=== PATIENT | female | born 1940 | race Caucasian/White ===

== ENCOUNTER 2016-07-28 18:12 | Observation (INO) | payer MEDICARE ==
[2016-07-28] MEDS ORDERED: ASPIRIN 81 MG TABLET, CHEWABLE PO ONE (18:47)
[2016-07-28] MEDS ORDERED: MECLIZINE HCL 25 MG TABLET PO ONE (20:00)
[2016-07-28] MEDS ORDERED: MORPHINE SULFATE 10 MG/ML INJ IV ONE (20:00)
[2016-07-28] MEDS ORDERED: NORMAL SALINE 1000 ML 500 ML IV PRN (20:00)
--- NOTE | 2016-07-28 20:00 | ER Document Report ---
ED GI/ - General Chief Complaint: Chest Pain Stated Complaint: CHEST PAIN Time seen by provider: 19:59 Mode of Arrival: Ambulatory Information source: Patient - HPI Patient complains to provider of: Flank pain, Other - Dizziness Onset: This evening Timing/Duration: Gradual, Persistent Quality of pain: Achy Severity at maximum: Moderate Severity in ED: Moderate Pain Level: 3 Location: Left flank Vaginal bleeding (Compared to normal period): None Associated symptoms: Dizzy, Lightheaded, Urinary frequency Exacerbated by: Movement, Walking Relieved by: Denies Similar symptoms previously: No Recently seen / treated by doctor: No Notes: 07/29/16 04:34 Patient is a 76-year-old female who is visiting from [place], visiting to the emergency room complaining of dizziness/lightheadedness, with chills, and left flank pain, states she got up to go to the bathroom and felt like she was going to pass out or collapse, she's having a mild headache with blurred vision at times as well, she reports urinary frequency with hesitancy, no blood, she does report nausea and diarrhea yesterday without blood, no vomiting, patient reports that when she stands up and looks down she gets very lightheaded and feels as though she is going to fall - Related Data Allergies/Adverse Reactions: ibuprofen [From Motrin] Allergy (Verified 07/29/16 02:40) ketorolac [From Toradol] Allergy (Verified 07/29/16 02:40) Past Medical History - General Information source: Patient, Relative - Social History Smoking Status: Never Smoker Family History: Reviewed & Not Pertinent Review of Systems - Review of Systems Constitutional: No symptoms reported EENT: No symptoms reported Cardiovascular: Dizziness, Lightheaded Respiratory: No symptoms reported Gastrointestinal: See HPI Genitourinary: See HPI Female Genitourinary: No symptoms reported Musculoskeletal: No symptoms reported Skin: No symptoms reported Hematologic/Lymphatic: No symptoms reported Neurological/Psychological: No symptoms reported -: Yes All other systems reviewed and negative Physical Exam - Vital signs Vitals: Temp Pulse Resp BP Pulse Ox 98.6 F 73 16 153/74 H 96 07/28/16 18:37 07/28/16 18:37 07/28/16 18:37 07/28/16 18:37 07/28/16 18:37 Interpretation: Normal - General General appearance: Appears well, Alert - HEENT Head: Normocephalic, Atraumatic Eyes: Normal Pupils: PERRL - Respiratory Respiratory status: No respiratory distress Chest status: Nontender Breath sounds: Normal Chest palpation: Normal - Cardiovascular Rhythm: Regular Heart sounds: Normal auscultation Murmur: No - Abdominal Inspection: Normal Distension: No distension Bowel sounds: Normal Tenderness: Nontender Organomegaly: No organomegaly - Back Back: Normal, Nontender - Extremities General upper extremity: Normal inspection, Nontender, Normal color, Normal ROM , Normal temperature General lower extremity: Normal inspection, Nontender, Normal color, Normal ROM , Normal temperature. No: Moises's sign - Neurological Neuro grossly intact: Yes Cognition: Normal Orientation: AAOx4 [place] Coma Scale Eye Opening: Spontaneous [place] Coma Scale Verbal: Oriented [place] Coma Scale Motor: Obeys Commands [place] Coma Scale Total: 15 Speech: Normal Motor strength normal: LUE, RUE, LLE, RLE Sensory: Normal - Psychological Associated symptoms: Normal affect, Normal mood - Skin Skin Temperature: Warm Skin Moisture: Dry Skin Color: Normal Course - Re-evaluation Re-evalutation: 07/29/16 04:36 Attempts to ambulate patient were unsuccessful as she became very dizzy and lightheaded, feeling like she was going to collapse or fall, therefore she was discussed with the hospitalist who agrees to admit patient for further evaluation and treatment - Vital Signs Vital signs: Temp Pulse Resp BP Pulse Ox 98.9 F 73 18 147/74 H 94 07/29/16 02:01 07/28/16 18:37 07/29/16 02:01 07/29/16 02:00 07/29/16 02:01 - Laboratory Result Diagrams: 07/28/16 20:01 07/28/16 20:01 Laboratory results interpreted by me: 07/28/16 07/28/16 07/28/16 20:01 20:01 20:18 WBC 18.0 H RBC 5.36 H RDW 14.3 H Absolute Neutrophils 13.7 H Potassium 5.3 H BUN 23 H Est GFR ( Amer) 57 L Est GFR (Non-Af Amer) 47 L Glucose 113 H Calcium 10.5 H Total Protein 8.9 H Urine Protein 30 H Ur Leukocyte Esterase LARGE H - Diagnostic Test Radiology reviewed: Image reviewed, Reports reviewed - EKG Interpretation by Me EKG shows normal: Sinus rhythm Rate: Normal Rhythm: NSR [place]/QRS: RBBB - Transfer of Care Care transferred to following provider: Stan Discharge - Discharge Clinical Impression: Dizziness, Pyelonephritis Condition: Fair Disposition: ADMITTED OBSERVATION Admitting Provider: Hospitalist Unit Admitted: Medical Floor
[2016-07-28 20:19] LABS: ABSOLUTE BASOPHILS # (AUTO) 0.2 10^3/uL (0.0-0.2); ABSOLUTE EOSINOPHILS # (AUTO) 0.2 10^3/uL (0.0-0.6); ABSOLUTE NEUT (AUTO) 13.7 10^3/uL (1.7-8.2); BASOPHILS % (AUTO) 0.9 % (0-2); HEMATOCRIT 44.6 % (36.0-47.0); HEMOGLOBIN 14.7 g/dL (12.0-15.5); HGB HCT DIFFERENCE -0.5; LYMPHOCYTES % (AUTO) 16.9 % (13-45); MEAN CORPUSCULAR HEMOGLOBIN 27.4 pg (27.0-33.4); MEAN CORPUSCULAR VOLUME 83 fl (80-97); MONOCYTES % (AUTO) 5.3 % (3-13); RED BLOOD COUNT 5.36 10^6/uL (3.72-5.28); RED CELL DISTRIBUTION WIDTH 14.3 % (11.5-14.0); SEGMENTED NEUTROPHILS % (AUTO) 75.9 % (42-78)
[2016-07-28 20:39] LABS: APPEARANCE,URINE CLOUDY; BILIRUBIN,URINE NEGATIVE (NEGATIVE); GLUCOSE, URINE NEGATIVE (NEGATIVE); KETONES,URINE NEGATIVE (NEGATIVE); LEUKOCYTE ESTERASE,URINE LARGE (NEGATIVE); NITRITE,URINE NEGATIVE (NEGATIVE); PROTEIN,URINE 30 mg/dL (NEGATIVE); URINE SPECIFIC GRAVITY 1.013; UROBILINOGEN,URINE NEGATIVE mg/dL (<2.0)
[2016-07-28 20:59] LABS: CREATINE KINASE MB 1.19 ng/mL (<4.55); TROPONIN I < 0.012 ng/mL
[2016-07-28 21:00] LABS: ALANINE AMINOTRANSFERASE 22 U/L (9-52); ALBUMIN 4.8 g/dL (3.5-5.0); ALKALINE PHOSPHATASE 122 U/L (38-126); ANION GAP 16 (5-19); ASPARTATE AMINO TRANSFERASE 33 U/L (14-36); BILIRUBIN,TOTAL 0.7 mg/dL (0.2-1.3); BLOOD UREA NITROGEN 23 mg/dL (7-20); CALCIUM 10.5 mg/dL (8.4-10.2); CARBON DIOXIDE 22 mmol/L (22-30); CHLORIDE 106 mmol/L (98-107); CREATINE KINASE 73 U/L (30-135); CREATININE RESULT 1.12 mg/dL (0.52-1.25); GLUCOSE 113 mg/dL (75-110); POTASSIUM 5.3 mmol/L (3.6-5.0); SODIUM 143.9 mmol/L (137-145); TOTAL PROTEIN 8.9 g/dL (6.3-8.2)
[2016-07-28] MEDS ORDERED: CEPHALEXIN 500 MG CAPSULE PO ONE (21:08)
[2016-07-28] MEDS ORDERED: CEFTRIAXONE RTU 1 GM/D5W 50 ML IV ONE (23:07)
[2016-07-28] MEDS ORDERED: LACTULOSE SYRUP 20 GM/30 ML UDCUP PO ONE (23:38)
[2016-07-28] MEDS ORDERED: HYDRALAZINE HCL INJ/PF 20 MG/1 ML SDV IV PRN (23:38)
[2016-07-28] MEDS ORDERED: IPRATROPIUM/ALBUTEROL 0.5-2.5 MG/3 ML AMPUL NEB PRN (23:39)
[2016-07-28] MEDS ORDERED: ONDANSETRON HCL INJ/PF 4 MG/2 ML SDV IV PRN (23:39)
[2016-07-28] MEDS ORDERED: DEXTROSE 50%-WATER 25 GM/50 ML DISP.SYRIN IV PRN ×2 (23:44)
[2016-07-28] MEDS ORDERED: GLUCAGON,HUMAN RECOMB 1 MG INJ IM PRN (23:44)
[2016-07-28] MEDS ORDERED: DEXTROSE 40% GEL 15 GM TUBE PO PRN ×2 (23:44)
[2016-07-28] MEDS ORDERED: INSULIN LISPRO 100 UNIT/ML 3 ML VIAL SUBCUT PRN (23:44)
[2016-07-29] MEDS: ACETAMINOPHEN 325 MG TABLET PO PRN ×2 (00:53→08:43)
[2016-07-29] MEDS: NORMAL SALINE 1000 ML 1,000 ML IV SCH ×3 (01:46→15:06)
[2016-07-29 02:29] LABS: CREATINE KINASE MB 1.26 ng/mL (<4.55)
[2016-07-29 02:32] LABS: TROPONIN I < 0.012 ng/mL
--- NOTE | 2016-07-29 05:15 | PDOC H&P ---
History of Present Illness Admission Date/PCP: 07/28/16 23:39 Patient complains of: Left-sided flank and chest pain History of Present Illness: CELIA TRIPLETT is a 76 year old female with a past medical history of coronary artery disease status post four-vessel bypass graft 4 years ago, congestive heart failure, diabetes, diverticulosis, morbid obesity and grief after the loss of her son 1 month ago. Who was in her usual state of health until 24 hours prior to presentation complaining of diarrhea in transit from [place] to [place] when developed left-sided flank pain followed by chest pain and sensation of dizziness when looking down prompting to seek evaluation emergency room. Denying fever chills nausea vomiting shortness of breath or palpitations, in the emergency room she's found to have leukocytosis, hyperkalemia left-sided flank pain and left lower quadrant pain she started on empiric antibiotics for urinary tract infection and referred to hospice for admission. Requesting treatment of pain and anxiety. Past Medical History Cardiac Medical History: Reports: Congestive Heart Failure, Coronary Artery Disease Endocrine Medical History: Reports: Diabetes Mellitus Type 2 Psychiatric Medical History: Reports: General Anxiety Disorder Past Surgical History Past Surgical History: Reports: Coronary Artery Bypass Graft Social History Information Source: Patient Lives with: Family Smoking Status: Never Smoker Frequency of Alcohol Use: None - Advance Directive Resuscitation Status: Full Code Family History Family History: Hypertension Parental Family History Reviewed: Yes Children Family History Reviewed: Yes Sibling(s) Family History Reviewed.: Yes Medication/Allergy Allergies/Adverse Reactions: ibuprofen [From Motrin] Allergy (Verified 07/29/16 02:40) ketorolac [From Toradol] Allergy (Verified 07/29/16 02:40) Review of Systems Constitutional: PRESENT: as per HPI Eyes: ABSENT: visual disturbances Ears: ABSENT: hearing changes Cardiovascular: ABSENT: chest pain, dyspnea on exertion, edema, orthropnea, palpitations Respiratory: ABSENT: cough, hemoptysis Gastrointestinal: PRESENT: abdominal pain, bloating, constipation, diarrhea. ABSENT: coffee ground emesis, dysphagia, heartburn, hematemesis, melena, vomiting Genitourinary: ABSENT: dysuria, hematuria Musculoskeletal: ABSENT: joint swelling Integumentary: ABSENT: rash, wounds Neurological: ABSENT: abnormal gait, abnormal speech, confusion, dizziness, focal weakness, syncope Psychiatric: PRESENT: anxiety Endocrine: ABSENT: cold intolerance, heat intolerance, polydipsia, polyuria Hematologic/Lymphatic: ABSENT: easy bleeding, easy bruising Physical Exam Vital Signs: Temp Pulse Resp BP Pulse Ox 97.3 F 61 16 144/71 H 94 07/29/16 03:39 07/29/16 03:39 07/29/16 03:39 07/29/16 03:39 07/29/16 02:01 General appearance: PRESENT: no acute distress, cooperative Head exam: PRESENT: atraumatic, normocephalic Eye exam: PRESENT: conjunctiva pink, EOMI, PERRLA, other - No reproducible nystagmus. ABSENT: scleral icterus Ear exam: PRESENT: normal external ear exam Mouth exam: PRESENT: moist, tongue midline Neck exam: ABSENT: carotid bruit, JVD, lymphadenopathy, thyromegaly Respiratory exam: PRESENT: clear to auscultation bird. ABSENT: crackles, decreased breath sounds, prolonged expiratory phas, rales, rhonchi, wheezes Cardiovascular exam: PRESENT: RRR, +S1, +S2. ABSENT: bradycardia, clicks, diastolic murmur, gallop, irregular rhythm, rubs, systolic murmur, tachycardia Pulses: PRESENT: normal dorsalis pedis pul GI/Abdominal exam: PRESENT: diminished bowel sounds, distended, hypoactive bowel sounds, soft, tenderness - Left upper and lower quadrant. ABSENT: firm, guarding, hernia, organolmegaly, rebound, rigid Rectal exam: PRESENT: deferred Extremities exam: PRESENT: full ROM. ABSENT: calf tenderness, clubbing, pedal edema Neurological exam: PRESENT: alert, awake, oriented to person, oriented to place , oriented to time, oriented to situation, reflexes normal, CN II-XII grossly intact. ABSENT: altered, motor sensory deficit Psychiatric exam: PRESENT: anxious Skin exam: PRESENT: dry, intact, warm. ABSENT: cyanosis, rash Results Laboratory Results: 07/29/16 07/29/16 01:29 01:29 Creatine Kinase 79 CK-MB (CK-2) 1.26 Troponin I < 0.012 Impressions: Chest X-Ray 07/28/16 18:47 IMPRESSION: NO ACUTE CARDIOPULMONARY PROCESS. CHRONIC CHANGES ABOVE Head CT 07/28/16 21:59 IMPRESSION: CHRONIC CHANGES OF ATROPHY AND MICROVASCULAR ISCHEMIA. NO ACUTE PROCESS. Assessment & Plan - Diagnosis (1) Diverticulitis Is this a current diagnosis for this admission?: YesPlan: Patient gives a history of abdominal pain with diarrhea and history of diverticulosis and chronic pain on narcotics. she'll be treated with clear liquid diet fluoroquinolone and Flagyl and reevaluation of CBC (2) Dizziness Is this a current diagnosis for this admission?: YesPlan: Likely secondary to orthostatic hypotension and acute illness will IV fluid challenge and reevaluate orthostatic blood pressures (3) Pyelonephritis Is this a current diagnosis for this admission?: YesPlan: Urinalysis somewhat suggestive of urinary tract infection associated with flank pain, complicated by chronic pain. I will treat her with symptomatically management, IV fluid challenge empiric fluoroquinolone and Flagyl with follow- up urine culture and CBC (4) Orthostatic hypotension Is this a current diagnosis for this admission?: YesPlan: Likely secondary to prerenal azotemia and acute illness she receive treatment of infection and IV fluid challenge with reevaluation - Time Time Spent: 50 to 70 Minutes
[2016-07-29] MEDS ORDERED: HEPARIN SOD (PORCINE) 5,000 UNIT/ML 1 ML SYRINGE SUBCUT SCH (06:00)
[2016-07-29 08:05] LABS: ABSOLUTE BASOPHILS # (AUTO) 0.2 10^3/uL (0.0-0.2); ABSOLUTE EOSINOPHILS # (AUTO) 0.5 10^3/uL (0.0-0.6); ABSOLUTE LYMPHOCYTES (AUTO) 4.6 10^3/uL (0.5-4.7); ABSOLUTE MONOCYTES (AUTO) 1.3 10^3/uL (0.1-1.4); ABSOLUTE NEUT (AUTO) 9.7 10^3/uL (1.7-8.2); BASOPHILS % (AUTO) 1.3 % (0-2); EOSINOPHILS % (AUTO) 2.8 % (0-6); HEMATOCRIT 37.3 % (36.0-47.0); HGB HCT DIFFERENCE -0.1; LYMPHOCYTES % (AUTO) 28.2 % (13-45); MEAN CORPUSCULAR HEMOGLOBIN 27.7 pg (27.0-33.4); MEAN CORPUSCULAR HGB CONC 33.4 g/dL (32.0-36.0); MEAN CORPUSCULAR VOLUME 83 fl (80-97); SEGMENTED NEUTROPHILS % (AUTO) 59.7 % (42-78); WHITE BLOOD COUNT 16.3 10^3/uL (4.0-10.5)
[2016-07-29 08:11] LABS: HEMOGLOBIN 12.4 g/dL (12.0-15.5)
[2016-07-29 08:23] LABS: ANION GAP 13 (5-19); BLOOD UREA NITROGEN 21 mg/dL (7-20); CALCIUM 9.1 mg/dL (8.4-10.2); CARBON DIOXIDE 19 mmol/L (22-30); CHLORIDE 110 mmol/L (98-107); CREATINE KINASE 99 U/L (30-135); GLUCOSE 92 mg/dL (75-110)
[2016-07-29 08:30] LABS: CREATINE KINASE MB 1.55 ng/mL (<4.55)
[2016-07-29 08:34] LABS: POTASSIUM 4.3 mmol/L (3.6-5.0); TROPONIN I < 0.012 ng/mL
[2016-07-29] MEDS: DOCUSATE SODIUM 100 MG CAPSULE PO SCH ×2 (09:17→18:22)
[2016-07-29] MEDS ORDERED: CEFTRIAXONE SODIUM 1,500 MG in DEXTROSE 5%-WATER 100 ML IV SCH ×2 (10:00→22:00)
[2016-07-29] MEDS ORDERED: (PENDING PHARMACY ID) (Oxycodone Hcl/Acetaminophen [Percocet 10-325 Mg Tablet] 1 TAB) PO PRN (12:43)
[2016-07-29] MEDS ORDERED: MORPHINE SULFATE 10 MG/ML INJ IV PRN (12:44)
[2016-07-29] MEDS: METRONIDAZOLE 500 MG TABLET PO SCH ×3 (13:40→23:05)
[2016-07-29 14:17] LABS: CREATINE KINASE MB 2.34 ng/mL (<4.55)
[2016-07-29 14:21] LABS: TROPONIN I < 0.012 ng/mL
--- NOTE | 2016-07-29 16:12 | EKG REPORT ---
SEVERITY:- ABNORMAL ECG - SINUS RHYTHM RIGHT BUNDLE BRANCH BLOCK : Confirmed by: Mary Jo Soliz MD 29-Jul-2016 16:11:54
[2016-07-29] MEDS: APIXABAN 5 MG TABLET PO SCH (18:19)
[2016-07-29] MEDS: DIAZEPAM 5 MG TABLET PO PRN (18:22)
[2016-07-29] MEDS: OXYCODONE-ACETAMINOPHEN 5-325 MG TABLET PO PRN (20:02)
[2016-07-29] MEDS: OXYCODONE HCL IR 5 MG TABLET PO PRN (20:02)
--- NOTE | 2016-07-29 20:39 | PDOC PROGRESS REPORT ---
Subjective Progress Note for:: 07/29/16 Subjective:: Patient complains of back pain. She reports that she normally takes oxycodone for her sciatica. Patient also complains of headache. Patient reports her dizziness is improving but still slightly present. Patient is sitting up eating lunch when I visited her. Patient denies chest pain, shortness of breath, abdominal pain, nausea, vomiting , diarrhea, constipation, new onset weakness. Physical Exam Vital Signs: Temp Pulse Resp BP Pulse Ox 97.8 F 69 20 124/63 97 07/29/16 19:55 07/29/16 19:55 07/29/16 19:55 07/29/16 19:55 07/29/16 19:55 Intake & Output 07/28/16 07/29/16 07/30/16 06:59 06:59 06:59 Intake Total 527 360 Balance 527 360 Weight 90 kg Exam: General: Awake alert and oriented x3, no acute respiratory distress HEENT: AT/NC, PERRL, EOMI, oropharynx is moist, pink, no scleral icterus, no conjunctival injection Neck: No JVD, trachea midline Chest: Velcro-like rales bilateral lower lobes CV: Regular rate and rhythm, normal S1 and S2, no murmur, rub, or gallop Abdomen: Soft, nontender to palpation, nondistended, active bowel sounds; no rebound, rigidity, or guarding Extremities: No cyanosis, clubbing or edema Neuro: Cranial nerves II through XII are grossly intact without focal deficits; awake alert and oriented x3 Psych: Normal mood and affect Results Laboratory Results: 07/29/16 07:25 07/29/16 07:25 07/29/16 07/29/16 07:25 07:25 WBC 16.3 H RBC 4.50 Hgb 12.4 D Hct 37.3 MCV 83 MCH 27.7 MCHC 33.4 RDW 14.0 Plt Count 242 Seg Neutrophils % 59.7 Lymphocytes % 28.2 Monocytes % 8.0 Eosinophils % 2.8 Basophils % 1.3 Absolute Neutrophils 9.7 H Absolute Lymphocytes 4.6 Absolute Monocytes 1.3 Absolute Eosinophils 0.5 Absolute Basophils 0.2 Sodium 142.0 Potassium 4.3 D Chloride 110 H Carbon Dioxide 19 L Anion Gap 13 BUN 21 H Creatinine 1.00 Est GFR ( Amer) > 60 Est GFR (Non-Af Amer) 54 L Glucose 92 Calcium 9.1 07/29/16 07/29/16 07/29/16 01:29 01:29 07:25 Creatine Kinase 79 99 CK-MB (CK-2) 1.26 Troponin I < 0.012 07/29/16 07/29/16 07/29/16 07:25 13:27 13:27 Creatine Kinase 120 CK-MB (CK-2) 1.55 2.34 Troponin I < 0.012 < 0.012 Impressions: Chest X-Ray 07/28/16 18:47 IMPRESSION: NO ACUTE CARDIOPULMONARY PROCESS. CHRONIC CHANGES ABOVE Head CT 07/28/16 21:59 IMPRESSION: CHRONIC CHANGES OF ATROPHY AND MICROVASCULAR ISCHEMIA. NO ACUTE PROCESS. Abdomen/Pelvis CT 07/29/16 00:00 IMPRESSION: No evidence of urinary tract stones or other acute abnormality. Assessment & Plan - Diagnosis (1) Sepsis Is this a current diagnosis for this admission?: YesPlan: This is a gram-negative sepsis most likely Escherichia coli due to UTI (2) UTI (urinary tract infection) Qualifiers: Urinary tract infection type: acute pyelonephritis Qualified Code(s) : N10 - Acute pyelonephritis Is this a current diagnosis for this admission?: YesPlan: Patient has back pain and UTI, however no imaging has been done at this time to elucidate if there is obstructing stone or other anatomic abnormalities. Will obtain a plain CT of the abdomen and pelvis. Patient does have a history of chronic back pain and this could represent an exacerbation of her chronic pain. Continue patient currently on Rocephin (3) Pulmonary fibrosis Is this a current diagnosis for this admission?: Yes (4) Sciatica Qualifiers: Laterality: unspecified laterality Qualified Code(s): M54.30 - Sciatica, unspecified side Is this a current diagnosis for this admission?: Yes (5) Chronic back pain Qualifiers: Back pain location: low back pain Is this a current diagnosis for this admission?: YesPlan: Continue patient's home narcotics (6) Chronic prescription opiate use Is this a current diagnosis for this admission?: Yes (7) CKD (chronic kidney disease) stage 3, GFR 30-59 ml/min Is this a current diagnosis for this admission?: Yes (8) Orthostatic hypotension Is this a current diagnosis for this admission?: YesPlan: Continue IV fluids - Time Time Spent with patient: 25-34 minutes Medications reviewed and adjusted accordingly: Yes Anticipated discharge: Home Within: within 24 hours, within 48 hours - Inpatient Certification Based on my medical assessment, after consideration of the patient's comorbidities, presenting symptoms, or acuity I expect that the services needed warrant INPATIENT care.: Yes I certify that my determination is in accordance with my understanding of Medicare's requirements for reasonable and necessary INPATIENT services [42 CFR 412.3e].: Yes Medical Necessity: Failure to Improve With Outpatient Therapy, Need For IV Fluids, Need For Continuous Telemetry Monitoring, Need for Pain Control, Need for IV Antibiotics Post Hospital Care: D/C [facility] Documentation
[2016-07-30] MEDS: OXYCODONE HCL IR 5 MG TABLET PO PRN ×3 (03:17→16:20)
[2016-07-30] MEDS: OXYCODONE-ACETAMINOPHEN 5-325 MG TABLET PO PRN ×2 (03:17→16:19)
[2016-07-30] MEDS: METRONIDAZOLE 500 MG TABLET PO SCH ×2 (06:17→12:54)
[2016-07-30] MEDS: DIAZEPAM 5 MG TABLET PO PRN (08:22)
[2016-07-30 09:04] LABS: ABSOLUTE BASOPHILS # (AUTO) 0.1 10^3/uL (0.0-0.2); ABSOLUTE EOSINOPHILS # (AUTO) 0.5 10^3/uL (0.0-0.6); ABSOLUTE LYMPHOCYTES (AUTO) 3.6 10^3/uL (0.5-4.7); ABSOLUTE MONOCYTES (AUTO) 0.8 10^3/uL (0.1-1.4); ABSOLUTE NEUT (AUTO) 7.6 10^3/uL (1.7-8.2); BASOPHILS % (AUTO) 1.1 % (0-2); EOSINOPHILS % (AUTO) 4.1 % (0-6); HEMATOCRIT 36.5 % (36.0-47.0); HEMOGLOBIN 12.2 g/dL (12.0-15.5); HGB HCT DIFFERENCE 0.1; LYMPHOCYTES % (AUTO) 28.1 % (13-45); MEAN CORPUSCULAR HEMOGLOBIN 27.8 pg (27.0-33.4); MEAN CORPUSCULAR HGB CONC 33.5 g/dL (32.0-36.0); MEAN CORPUSCULAR VOLUME 83 fl (80-97); MONOCYTES % (AUTO) 6.5 % (3-13); RED BLOOD COUNT 4.39 10^6/uL (3.72-5.28); SEGMENTED NEUTROPHILS % (AUTO) 60.2 % (42-78); WHITE BLOOD COUNT 12.7 10^3/uL (4.0-10.5)
[2016-07-30] MEDS: APIXABAN 5 MG TABLET PO SCH (09:50)
[2016-07-30] MEDS: DOCUSATE SODIUM 100 MG CAPSULE PO SCH (09:54)
[2016-07-30] MEDS ORDERED: SERTRALINE HCL 50 MG TABLET PO SCH (10:00)
[2016-07-30] MEDS ORDERED: METOPROLOL SUCCINATE 50 MG TAB.SR.24H PO SCH (10:00)
[2016-07-30] MEDS ORDERED: LORATADINE 10 MG TABLET PO ONE (11:30)
[2016-07-30] MEDS ORDERED: FLUTICASONE NASAL SPRAY 50 MCG/SPRY 120 SPRAY/16 GM NASL ONE (12:00)
[2016-07-30] MEDS: ACETAMINOPHEN 325 MG TABLET PO PRN (15:23)
[2016-07-30 15:48] VITALS: BP 123/84
--- NOTE | 2016-07-30 16:54 | PDOC DISCHARGE SUMMARY ---
General - Admit/Disc Date/PCP Admission Date/Primary Care Provider: 07/28/16 23:39 Discharge Date: 07/30/16 - Discharge Diagnosis (1) Sepsis Is this a current diagnosis for this admission?: Yes (2) UTI (urinary tract infection) Is this a current diagnosis for this admission?: Yes (3) Pulmonary fibrosis Is this a current diagnosis for this admission?: Yes (4) Sciatica Is this a current diagnosis for this admission?: Yes (5) Chronic back pain Is this a current diagnosis for this admission?: Yes (6) Chronic prescription opiate use Is this a current diagnosis for this admission?: Yes (7) CKD (chronic kidney disease) stage 3, GFR 30-59 ml/min Is this a current diagnosis for this admission?: Yes (8) Orthostatic hypotension Is this a current diagnosis for this admission?: Yes (9) Obesity (BMI 30.0-34.9) Is this a current diagnosis for this admission?: Yes - Additional Information Resuscitation Status: Full Code Discharge Diet: Cardiac, Diabetic Discharge Activity: Activity As Tolerated Home Medications: Apixaban [Eliquis 5 mg Tablet] 5 mg PO BID 07/29/16 Aspirin [Aspirin EC] 81 mg PO DAILY 07/29/16 Diazepam [Valium 5 mg Tablet] 5 mg PO TIDP PRN 07/29/16 Furosemide [Lasix] 20 mg PO DAILY 07/29/16 Metoprolol Succinate [Toprol Xl 50 mg Tab.sr] 50 mg PO DAILY 07/29/16 Oxycodone HCl/Acetaminophen [Percocet 10-325 mg Tablet] 1 tab PO QIDP PRN Sertraline HCl [Zoloft] 100 mg PO DAILY 07/29/16 Ciprofloxacin HCl [Cipro 500 mg Tablet] 500 mg PO BID #20 tablet 07/30/16 Docusate Sodium [Colace 100 mg Capsule] 100 mg PO BID capsule 07/30/16 Fluticasone Propionate [Flonase Nasal [place] 50 Mcg/[place] 16 gm] 1 spray NASL Q12 #1 spray.pump 07/30/16 Loratadine [Claritin 10 mg Tablet] 10 mg PO DAILY #30 tablet 07/30/16 Methylprednisolone [Medrol Dosepack (4 mg/Tab) 21 Tab/Dosepak] 4 mg PO ASDIR PRN #21 tab.ds.pk 07/30/16 History of Present Illness History of Present Illness: CELIA TRIPLETT is a 76 year old female with a past medical history of coronary artery disease status post four-vessel bypass graft 4 years ago, congestive heart failure, diabetes, diverticulosis, morbid obesity and grief after the loss of her son 1 month ago. Who was in her usual state of health until 24 hours prior to presentation complaining of diarrhea in transit from [place] to [place] when developed left-sided flank pain followed by chest pain and sensation of dizziness when looking down prompting to seek evaluation emergency room. Denying fever chills nausea vomiting shortness of breath or palpitations, in the emergency room she's found to have leukocytosis, hyperkalemia left-sided flank pain and left lower quadrant pain she started on empiric antibiotics for urinary tract infection and referred to hospitalist for admission. Requesting treatment of pain and anxiety. Hospital Course Hospital Course: Patient was placed on observation and started empirically on Rocephin for her urinary tract infection. Patient underwent CT scan of the abdomen to evaluate for possible stone or pyelonephritis. Patient was found to have no stone or pyelonephritis and no diverticulitis. Patient underwent a CT of her head for headaches and was found to be unremarkable. Patient expressed symptoms consistent with allergic rhinitis including facial discomfort was started on Flonase and Claritin. Patient did request refills of her narcotics and benzodiazepines which were declined prior to discharge. Patient was found to have Escherichia coli UTI which was sensitive to Cipro patient was placed on Cipro and discharged home. Patient has been instructed to follow-up with for these chronic conditions with her primary care physician. Patient does not doctor here in [place] and does see a physician out of state. Patient is discharged in stable condition. Physical Exam Vital Signs: Temp Pulse Resp BP Pulse Ox 97.2 F 70 16 123/84 99 07/30/16 15:48 07/30/16 15:48 07/30/16 15:48 07/30/16 15:48 07/30/16 15:48 Intake & Output 07/29/16 07/30/16 07/31/16 06:59 06:59 06:59 Intake Total 527 917 355 Output Total 950 200 Balance 527 -33 155 Weight 90 kg 93.6 kg Exam: General: Awake alert and oriented x3, no acute respiratory distress HEENT: AT/NC, PERRL, EOMI, oropharynx is moist, pink, no scleral icterus, no conjunctival injection Neck: No JVD, trachea midline Chest: Velcro-like crackles bilateral lower lobes CV: Regular rate and rhythm, normal S1 and S2, no murmur, rub, or gallop Abdomen: Soft, nontender to palpation, nondistended, active bowel sounds; no rebound, rigidity, or guarding Extremities: No cyanosis, clubbing or edema Neuro: Cranial nerves II through XII are grossly intact without focal deficits; awake alert and oriented x3 Psych: Normal mood and affect Results Laboratory Results: 07/30/16 08:55 07/29/16 07:25 07/30/16 08:55 WBC 12.7 H RBC 4.39 Hgb 12.2 Hct 36.5 MCV 83 MCH 27.8 MCHC 33.5 RDW 14.0 Plt Count 218 Seg Neutrophils % 60.2 Lymphocytes % 28.1 Monocytes % 6.5 Eosinophils % 4.1 Basophils % 1.1 Absolute Neutrophils 7.6 Absolute Lymphocytes 3.6 Absolute Monocytes 0.8 Absolute Eosinophils 0.5 Absolute Basophils 0.1 07/29/16 07/29/16 07/29/16 01:29 01:29 07:25 Creatine Kinase 79 99 CK-MB (CK-2) 1.26 Troponin I < 0.012 07/29/16 07/29/16 07/29/16 07:25 13:27 13:27 Creatine Kinase 120 CK-MB (CK-2) 1.55 2.34 Troponin I < 0.012 < 0.012 Impressions: Chest X-Ray 07/28/16 18:47 IMPRESSION: NO ACUTE CARDIOPULMONARY PROCESS. CHRONIC CHANGES ABOVE Head CT 07/28/16 21:59 IMPRESSION: CHRONIC CHANGES OF ATROPHY AND MICROVASCULAR ISCHEMIA. NO ACUTE PROCESS. Abdomen/Pelvis CT 07/29/16 00:00 IMPRESSION: No evidence of urinary tract stones or other acute abnormality. Qualifiers PATEINT BEING DISCHARGED WITH ANY OF THE FOLLOWING DIAGNOSIS?: No Plan Time Spent: Greater than 30 Minutes
[2016-07-30] MEDS ORDERED: FLUTICASONE NASAL SPRAY 50 MCG/SPRY 120 SPRAY/16 GM NASL SCH (22:00)
[2016-07-31] MEDS ORDERED: LORATADINE 10 MG TABLET PO SCH (10:00)
== END 2016-07-30 16:41 | disposition home or self-care (01) ==
LOC: ER 18:12 → EH 23:39 → 4W 07-29 03:40
PROVIDERS: ADMIT Internal Medicine; ATTEND Internal Medicine
DX: A41.9 Sepsis, unspecified organism (principal); N12 Tubulo-interstitial nephritis, not specified as acute or chronic; J84.10 Pulmonary fibrosis, unspecified; M54.30 Sciatica, unspecified side; G89.29 Other chronic pain; M54.9 Dorsalgia, unspecified; N18.3 Chronic kidney disease, stage 3 (moderate); I95.0 Idiopathic hypotension; I25.10 Atherosclerotic heart disease of native coronary artery without angina pectoris; I50.9 Heart failure, unspecified; E11.22 Type 2 diabetes mellitus with diabetic chronic kidney disease; K57.92 Diverticulitis of intestine, part unspecified, without perforation or abscess without bleeding; R42 Dizziness and giddiness; E66.9 Obesity, unspecified; Z95.1 Presence of aortocoronary bypass graft; Z79.899 Other long term (current) drug therapy
CPT/HCPCS: 93005; 36415 ×3; 87086; 82553 ×2; 82962 ×2; 82550 ×2; 85025 ×3; 87088; 80048; 80053; 81001; 84484 ×2; 87186; 71010; 70450; 74176; 93010; 97163; G0378 ×3; A9270 ×20; J1644; J2270 ×2; J0696 ×2; J7030 ×2; G8978; G8979; 96361; 96365; 96366; 96375; 99285

== ENCOUNTER 2016-08-06 14:25 | Inpatient (IN) | payer MEDICARE ==
--- NOTE | 2016-08-06 14:44 | ER Document Report ---
ED Medical Screen (RME) - General Stated Complaint: DIZZINESS Mode of Arrival: Wheelchair Information source: Patient, Relative - Daughter Notes: Patient presents to the emergency department with dizziness decreased urine output low back pain. Daughter reports patient had the symptoms since and discharged last week from hospital for the same. Daughter reports some was like she's passing out when she becomes very dizzy. Denies chest pain. Reports she is dizzy when she leans down, looks up or just sitting. She is taking cipro now. Reports diarrhea stool is foul smelling, looks funny. I have greeted and performed a rapid initial assessment of this patient. A comprehensive ED assessment and evaluation of the patient, analysis of test results and completion of the medical decision making process will be conducted by additional ED providers. TRAVEL OUTSIDE OF THE [place] IN LAST 30 DAYS: No - Related Data Allergies/Adverse Reactions: ibuprofen [From Motrin] Allergy (Verified 07/29/16 02:40) ketorolac [From Toradol] Allergy (Verified 07/29/16 02:40) Past Medical History - Past Medical History Cardiac Medical History: Reports: Hx Congestive Heart Failure, Hx Coronary Artery Disease Endocrine Medical History: Reports: Hx Diabetes Mellitus Type 2 Past Surgical History: Reports: Hx Coronary Artery Bypass Graft
[2016-08-06] MEDS ORDERED: ACETAMINOPHEN 325 MG TABLET PO ONE (15:02)
[2016-08-06 15:25] LABS: ABSOLUTE BASOPHILS # (AUTO) 0.1 10^3/uL (0.0-0.2); ABSOLUTE EOSINOPHILS # (AUTO) 0.2 10^3/uL (0.0-0.6); ABSOLUTE LYMPHOCYTES (AUTO) 2.4 10^3/uL (0.5-4.7); ABSOLUTE MONOCYTES (AUTO) 0.9 10^3/uL (0.1-1.4); ABSOLUTE NEUT (AUTO) 12.3 10^3/uL (1.7-8.2); BASOPHILS % (AUTO) 0.6 % (0-2); EOSINOPHILS % (AUTO) 1.5 % (0-6); HEMATOCRIT 40.7 % (36.0-47.0); HEMOGLOBIN 13.7 g/dL (12.0-15.5); HGB HCT DIFFERENCE 0.4; MEAN CORPUSCULAR HGB CONC 33.7 g/dL (32.0-36.0); MEAN CORPUSCULAR VOLUME 83 fl (80-97); MONOCYTES % (AUTO) 5.8 % (3-13); RED BLOOD COUNT 4.91 10^6/uL (3.72-5.28); RED CELL DISTRIBUTION WIDTH 14.5 % (11.5-14.0); SEGMENTED NEUTROPHILS % (AUTO) 77.1 % (42-78)
[2016-08-06 15:43] LABS: ALANINE AMINOTRANSFERASE 24 U/L (9-52); ALBUMIN 4.5 g/dL (3.5-5.0); ALKALINE PHOSPHATASE 101 U/L (38-126); ANION GAP 18 (5-19); ASPARTATE AMINO TRANSFERASE 21 U/L (14-36); BILIRUBIN,DIRECT 0.4 mg/dL (0.0-0.4); BILIRUBIN,TOTAL 0.6 mg/dL (0.2-1.3); BLOOD UREA NITROGEN 14 mg/dL (7-20); CALCIUM 9.9 mg/dL (8.4-10.2); CARBON DIOXIDE 20 mmol/L (22-30); CHLORIDE 105 mmol/L (98-107); GLUCOSE 114 mg/dL (75-110); POTASSIUM 4.1 mmol/L (3.6-5.0); SODIUM 142.7 mmol/L (137-145); TOTAL PROTEIN 7.6 g/dL (6.3-8.2)
[2016-08-06 16:10] LABS: APPEARANCE,URINE SLIGHTLY-CLOUDY; BILIRUBIN,URINE NEGATIVE (NEGATIVE); GLUCOSE, URINE NEGATIVE (NEGATIVE); KETONES,URINE NEGATIVE (NEGATIVE); LEUKOCYTE ESTERASE,URINE LARGE (NEGATIVE); NITRITE,URINE NEGATIVE (NEGATIVE); PROTEIN,URINE 30 mg/dL (NEGATIVE); URINE SPECIFIC GRAVITY 1.009; UROBILINOGEN,URINE NEGATIVE mg/dL (<2.0)
[2016-08-06] MEDS ORDERED: MECLIZINE HCL 25 MG TABLET PO ONE (17:59)
[2016-08-06] MEDS ORDERED: METRONIDAZOLE 500 MG TABLET PO ONE (17:59)
--- NOTE | 2016-08-06 19:09 | ER Document Report ---
ED General - General Chief Complaint: Diarrhea Stated Complaint: DIZZINESS Mode of Arrival: Wheelchair Information source: Patient, Relative, [facility] Records Notes: This 76-year-old female patient comes emergency room complaining of dizziness for the past 2 weeks, low back pain and decreased urine output. She reports the diarrhea is foul smelling. She does have chronic low back pain. She was seen in the emergency room on 07/28/2016 complaining of flank pain and dizziness with urine frequency and lightheaded. At that time she reports that when she stands up and looks down she gets very lightheaded and feels as though she is going to fall. Those symptoms have persisted. She reports that when she goes to lay down, she would get dizzy and if she bends over to tie her shoes she will get dizzy. The dizziness does not last but for a few seconds. She was admitted on 07/28/2016 and discharged on 07/30/2016. She was found to have an Escherichia coli urinary tract infection. CT scan of the head done at that time showed right maxillary mucous retention cysts or polyps. She ultimately was discharged on Cipro for her Escherichia coli urinary tract infection. I did observe the patient through the window as she was getting up from a toilet , wiping, and then sitting back on the stretcher and she did not seem to have any difficulty with ambulation at that time. Later when I was in the room and had finished and exam I had her stand up to check her balance, and she put both arms out to the sides and went into a wide based staggering to demonstrate how bad things are. She does have a past history of C. difficile infection according to her daughter. During the 07/28/2016 admission, her stool was not tested for C. difficile. TRAVEL OUTSIDE OF THE [place] IN LAST 30 DAYS: No - Related Data Allergies/Adverse Reactions: ibuprofen [From Motrin] Allergy (Verified 08/06/16 14:43) ketorolac [From Toradol] Allergy (Verified 08/06/16 14:43) Past Medical History - General Information source: Patient, Relative - Daughter, [facility] Records - Social History Smoking Status: Never Smoker Cigarette use (# per day): No Chew tobacco use (# tins/day): No Smoking Education Provided: No Frequency of alcohol use: None Drug Abuse: None Occupation: retired Lives with: Other - Patient is visiting here from [facility], and they expect to be in this area for another 2 weeks. Family History: Hypertension Patient has suicidal ideation: No Patient has homicidal ideation: No - Past Medical History Cardiac Medical History: Reports: Hx Congestive Heart Failure, Hx Coronary Artery Disease Endocrine Medical History: Reports: Hx Diabetes Mellitus Type 2 Renal/ Medical History: Denies: Hx Peritoneal Dialysis Past Surgical History: Reports: Hx Coronary Artery Bypass Graft - Immunizations Hx Pneumococcal Vaccination: 02/12/16 Review of Systems - Review of Systems Constitutional: No symptoms reported EENT: Sinus pressure, Sinus discharge - Clear sinus discharge Cardiovascular: No symptoms reported Respiratory: No symptoms reported Gastrointestinal: See HPI, Diarrhea Genitourinary: No symptoms reported Female Genitourinary: Post menopausal Musculoskeletal: Back pain - Chronic low back pain Skin: No symptoms reported Hematologic/Lymphatic: No symptoms reported Neurological/Psychological: No symptoms reported Physical Exam - Vital signs Vitals: Temp Pulse Resp BP Pulse Ox 98.1 F 85 20 124/76 94 08/06/16 14:39 08/06/16 14:39 08/06/16 14:39 08/06/16 14:39 08/06/16 14:39 Interpretation: Normal - General General appearance: Appears well, Alert In distress: None - HEENT Head: Normocephalic, Atraumatic Eyes: Normal Pupils: PERRL Neck: Normal - Respiratory Respiratory status: No respiratory distress - Cardiovascular Rhythm: Regular - Abdominal Inspection: Obese Bowel sounds: Normal Tenderness: Nontender - Back Back: Tender - Extremities General upper extremity: Normal inspection General lower extremity: Normal inspection - Neurological Neuro grossly intact: Yes Notes: When I have the patient looked up-and-down rapidly and side to side, there is no nystagmus and the dizziness she reports occurs only when she looks up rapidly and it goes away almost instantly. - Psychological Associated symptoms: Normal affect, Normal mood - Skin Skin Temperature: Warm Skin Moisture: Dry Skin Color: Normal Course - Re-evaluation Re-evalutation: 08/06/16 19:19 The patient's stool was positive for C. difficile toxins. The stool was heme positive, there were no WBCs seen. - Vital Signs Vital signs: Temp Pulse Resp BP Pulse Ox 97.9 F 67 18 111/62 97 08/06/16 18:40 08/06/16 18:40 08/06/16 18:40 08/06/16 18:40 08/06/16 18:40 - Laboratory Result Diagrams: 08/06/16 14:58 08/06/16 14:58 Laboratory results interpreted by me: 08/06/16 08/06/16 08/06/16 14:58 14:58 15:26 WBC 16.0 H RDW 14.5 H Absolute Neutrophils 12.3 H Carbon Dioxide 20 L Est GFR ( Amer) 58 L Est GFR (Non-Af Amer) 48 L Glucose 114 H Urine Protein 30 H Urine Blood SMALL H Ur Leukocyte Esterase LARGE H - EKG Interpretation by Me EKG shows normal: Sinus rhythm, [place], Intervals, ST-T Waves. abnormal: QRS Complexes Rate: Normal - 79 Rhythm: NSR [place]/QRS: RBBB When compared to previous EKG there are: No significant change - Consults Dr. Cuenca Time consulted: 19:40 Consulted provider: will come to ER Discharge - Discharge Clinical Impression: Clostridium difficile diarrhea Urinary tract infection Qualifiers: Urinary tract infection type: site unspecified Hematuria presence: with hematuria Qualified Code(s): N39.0 - Urinary tract infection, site not specified Condition: Stable Disposition: ADMITTED INPATIENT Admitting Provider: Hospitalist Unit Admitted: Telemetry Scribe Attestation: 08/06/16 19:54 I personally performed the services described in the documentation, reviewed and edited the documentation which was dictated to the scribe in my presence, and it accurately records my words and actions.
[2016-08-06] MEDS ORDERED: VANCOMYCIN HCL INJ 500 MG VIAL PO ONE (19:49)
[2016-08-06] MEDS ORDERED: CEFTRIAXONE 1 GM/D5W RTU 50 ML IV ONE (19:51)
--- NOTE | 2016-08-06 20:03 | EKG REPORT ---
SEVERITY:- ABNORMAL ECG - SINUS RHYTHM RIGHT BUNDLE BRANCH BLOCK : Confirmed by: Klever Snell MD 06-Aug-2016 20:03:02
[2016-08-06] MEDS ORDERED: DEXTROSE 50%-WATER 25 GM/50 ML DISP.SYRIN IV PRN ×2 (23:50)
[2016-08-06] MEDS ORDERED: GLUCAGON,HUMAN RECOMB 1 MG INJ IM PRN (23:50)
[2016-08-06] MEDS ORDERED: INSULIN LISPRO 100 UNIT/ML 3 ML VIAL SUBCUT PRN (23:50)
[2016-08-06] MEDS ORDERED: DEXTROSE 40% GEL 15 GM TUBE PO PRN ×2 (23:50)
[2016-08-06] MEDS ORDERED: NORMAL SALINE 1000 ML 1,000 ML IV PRN (23:51)
[2016-08-06 23:53] LABS: ADD ON TESTING BLD IN LAB ACKNOWLEDGE
[2016-08-07 00:06] LABS: MAGNESIUM 1.5 mg/dL (1.6-2.3)
[2016-08-07] MEDS ORDERED: VANCOMYCIN HCL INJ 500 MG VIAL PO PRN (00:12)
--- NOTE | 2016-08-07 00:12 | PDOC H&P ---
History of Present Illness Admission Date/PCP: 08/06/16 19:57 PCP [facility] Patient complains of: Dizziness, and diarrhea. History of Present Illness: CELIA TRIPLETT is a 76 year old female, from [facility], who presents to the emergency room for evaluation of above complaint. Hospitalized on our service the through the of this month with final diagnoses including sepsis secondary to urinary tract infection, pulmonary fibrosis, sciatica, chronic back pain, chronic opiate use, orthostatic hypotension. Patient requested refills of her narcotics and benzodiazepines upon discharge, but this was declined. History and physical and discharge summary have been reviewed. She presents now with continuation of what she describes as a two-week history of times pronounced dizziness, her chronic low back pain and sciatica, decreased urine output, and foul-smelling diarrhea. She's had nausea but no vomiting. Mild dysuria. Shaking chills. No abdominal pain. Please refer to comments by the evaluating emergency room physician in his initial evaluation of the patient, in particular comments related to her wide- based staggering as he describes it. History of C. difficile infection. Patient has been discussed with emergency room physician who evaluated the patient. . Laboratory results are listed in [employer] and are reviewed. X-ray summary results are listed below, with full report(s) reviewed. . EKG reviewed. And compared to a tracing from the of this month. Social history/personal habits: . Lives with daughter. Retired. No use of alcohol tobacco or illicit drugs. Allergies/adverse reactions NKDA. Home medications Home medications initially autopopulated into [employer] may not accurately reflect patient's true medications, dosages, and/or frequencies. Unfortunately, patient uncertain of medications/dosages/frequencies. REVIEW OF SYSTEMS: Constitutional: See history and present illness. Eyes: Wears glasses. ENT: No swallowing problems or complaints. No hearing problems or complaints. Pulmonary: No current complaints. Cardiovascular: No current complaints, including chest pain. Gastrointestinal: See history and present illness. Skin: No current complaints, including rashes. Hematologic: Easy bruising. Neurologic: See history and present illness. 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 Musculoskeletal: See history and present illness. Psychiatric: Mild anxiety and depression; denies suicidal or homicidal ideation. Recent of her son due to an asthma attack. Endocrine: No current complaints, including polyuria. Genitourinary: No current complaints, including dysuria. PHYSICAL EXAMINATION: 5 feet 5 inches tall. 91.8 kg. BMI 33.7 kg/m. Blood pressure 120/63. Pulse 61 and regular. 97% saturation on room air. Respirations are 23 and unlabored. Temperature 97.9. Obese chronically ill-appearing female who nevertheless appears approximately her stated age. Appears perhaps slightly fatigued. Appears also to feel perhaps slightly under the weather, so to speak. Otherwise, pleasant awake alert and cooperative. Skin is warm and dry. No grossly obvious evidence of rash in areas of skin examined. No subcutaneous nodules palpated. ENT: Hearing grossly normal Mildly hard of hearing to normal conversation. Tongue midline on protrusion pink and slightly tacky. Eyes: No scleral icterus. Pupils equal and reactive to light at 4 mm. [place] conjunctivae. Neck is supple and nontender to gentle active range of motion and palpation. Midline trachea. No palpable thyroid nodule mass enlargement or tenderness. Lymphatic: No palpable cervical or clavicular nodes. Neck and lymphatic exams limited by patient body habitus. Psychiatric: Fair to reasonable insight into acute and chronic medical issues. Oriented to time location and why here. Somewhat of a rambling historian at times. Lungs: Auscultation reveals clear and equal breath sounds bilaterally. No use of accessory respiratory muscles. Cardiovascular: Heart regular rate and rhythm, without gallop murmur or rub. No carotid or abdominal aortic bruits. No ankle or pedal edema. Faintly palpable dorsalis pedis pulses. Abdomen: soft, somewhat obese, nontender with positive bowel sounds. Unable to adequately evaluate abdomen for masses or organomegaly due to body habitus. Extremities: Feet are warm and dry. No calf tenderness to compression. No grossly obvious visual evidence of calf swelling. Gentle manipulation of lower extremities fails to reveal any obvious evidence of injury or instability to knees hips or ankles. Neurologic: Moves upper extremities grossly normally. Patellar reflexes absent. Absent Babinski. Light touch is decreased at feet, due to diabetic neuropathy, according to patient.. Dorsiflexion and plantarflexion of feet 5 / 5 and symmetric. Past Medical History Cardiac Medical History: Reports: Congestive Heart Failure, Coronary Artery Disease, Hyperlipidema - No medication for same, due to her age per patient., Other - On Eliquis; patient uncertain as to why. 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 Denies: Hemorrhagic CVA, Seizures Endocrine Medical History: Reports: Diabetes Mellitus Type 2 - Diet-controlled Denies: Hyperthyroidism, Hypothyroidism GI Medical History: Denies: Cirrhosis, Gastroesophageal Reflux Disease, Hepatitis, Peptic Ulcer Disease Musculoskeltal Medical History: Reports: Gout, Other - Chronic back pain and sciatica. Skin Medical History: Reports: None Psychiatric Medical History: Reports: Depression, General Anxiety Disorder Denies: Alcohol Dependency, Substance Abuse, Tobacco Dependency Hematology: Reports: Other - Easy bruising Infectious Medical History: Reports: Clostridium Difficile Denies: Hepatitis B, Hepatitis C, Methicillin-Resistant Staph Aureus Past Surgical History Past Surgical History: Reports: Coronary Artery Bypass Graft Social History Information Source: Patient, Emergency Med Personnel, [facility] Records Lives with: Family Smoking Status: Never Smoker Frequency of Alcohol Use: None Hx Recreational Drug Use: No Drugs: None Hx Prescription Drug Abuse: No - Advance Directive Resuscitation Status: Full Code Surrogate healthcare decision maker:: Daughter Family History Family History: Hypertension Parental Family History Reviewed: Yes Children Family History Reviewed: Yes Sibling(s) Family History Reviewed.: Yes Medication/Allergy Home Medications: Albuterol Sulfate [Ventolin HFA MDI 18 GM] 1 puff IH Q6HP PRN 08/07/16 Apixaban [Eliquis 5 mg Tablet] 5 mg PO BID 08/07/16 Aspirin [Aspirin 81 mg Chewable Tablet] 81 mg PO DAILY 08/07/16 Diazepam [Valium 5 mg Tablet] 5 mg PO TIDP PRN 08/07/16 Docusate Sodium [Colace 100 mg Capsule] 100 mg PO DAILYP PRN 08/07/16 Fluticasone Propionate [Flonase Nasal [place] 50 Mcg/[place] 16 gm] 1 spray NASL Q12 08/07/16 Furosemide [Lasix] 20 mg PO BID 08/07/16 Loratadine [Claritin 10 mg Tablet] 10 mg PO DAILY 08/07/16 Metoprolol Succinate [Toprol Xl 50 mg Tab.sr] 50 mg PO DAILY 08/07/16 Sertraline HCl [Zoloft] 100 mg PO DAILY 08/07/16 Trazodone HCl [Desyrel] 100 mg PO HSP PRN 08/07/16 Acetaminophen [Tylenol 325 mg Tablet] 650 mg PO Q4HP PRN tablet 08/10/16 Metronidazole [Flagyl 500 mg Tablet] 500 mg PO Q8 #18 tablet 08/10/16 Oxycodone HCl/Acetaminophen [Percocet 5-325 mg Tablet] 1 - 2 tab PO Q4HP PRN # 30 tablet 08/10/16 Prednisone [Deltasone 20 mg Tablet] 20 mg PO BID #6 tablet 08/10/16 Allergies/Adverse Reactions: ibuprofen [From Motrin] Allergy (Verified 08/06/16 14:43) ketorolac [From Toradol] Allergy (Verified 08/06/16 14:43) Physical Exam Vital Signs: Temp Pulse Resp BP Pulse Ox 97.9 F 67 18 111/62 97 08/06/16 18:40 08/06/16 18:40 08/06/16 18:40 08/06/16 18:40 08/06/16 18:40 Assessment & Plan - Diagnosis (1) Clostridium difficile diarrhea Is this a current diagnosis for this admission?: YesPlan: Due to recurrent nature, oral vancomycin. (2) Dizziness Is this a current diagnosis for this admission?: YesPlan: CT scan of brain without contrast. Orthostatic vital signs every 4 hours while awake, starting in the morning. (3) Heme + stool Is this a current diagnosis for this admission?: YesPlan: Consider GI consult. (4) Renal insufficiency Is this a current diagnosis for this admission?: YesPlan: No old labs before her recent hospital stay here. IV fluids. Follow-up chemistry. (5) UTI (urinary tract infection) Qualifiers: Urinary tract infection type: site unspecified Is this a current diagnosis for this admission?: YesPlan: Rocephin; prior culture results noted. Blood and urine cultures. I have strongly encouraged patient not to get out of bed without notifying staff , to avoid a fall with injury. Knee high SCDs for DVT prophylaxis,; with patient on Eliquis, combined with her heme positive stool, no need for Lovenox or heparin. Impression and plans were discussed with patient, who concurs. Time spent in evaluation and management of patient: 58 minutes (6) History of Clostridium difficile infection Is this a current diagnosis for this admission?: Yes (7) CHF (congestive heart failure) Qualifiers: Congestive heart failure type: unspecified congestive heart failure type Congestive heart failure chronicity: chronic Qualified Code(s): I50.9 - Heart failure, unspecified Is this a current diagnosis for this admission?: YesPlan: No evidence of exacerbation of same.Resume home medications as appropriate once these have been determined and reviewed. (8) Chronic back pain Qualifiers: Back pain location: low back pain Back pain laterality: unspecified Sciatica presence: with sciatica Sciatica laterality: sciatica of left side Qualified Code(s): M54.42 - Lumbago with sciatica, left side; G89.29 - Other chronic pain Is this a current diagnosis for this admission?: YesPlan: When necessary pain meds. (9) Sciatica Qualifiers: Laterality: left Qualified Code(s): M54.32 - Sciatica, left side Is this a current diagnosis for this admission?: Yes - Inpatient Certification Based on my medical assessment, after consideration of the patient's comorbidities, presenting symptoms, or acuity I expect that the services needed warrant INPATIENT care.: Yes I certify that my determination is in accordance with my understanding of Medicare's requirements for reasonable and necessary INPATIENT services [42 CFR 412.3e].: Yes Medical Necessity: Need Close Monitoring Due to Risk of Patient Decompensation, Need For IV Fluids, Need For Continuous Telemetry Monitoring, Need for IV Antibiotics, Risk of Complication if Not Cared For in Hospital, Risk of Diagnosis Which Will Require Inpatient Eval/Care/Monitoring Post Hospital Care: D/C or Transfer Summary
[2016-08-07] MEDS: ACETAMINOPHEN 650 MG SUPP.RECT PR PRN ×2 (00:30→08:50)
[2016-08-07] MEDS: VANCOMYCIN HCL INJ 500 MG VIAL PO SCH ×4 (00:30→18:32)
[2016-08-07 01:09] LABS: CREATINE KINASE MB 0.76 ng/mL (<4.55)
[2016-08-07 01:16] LABS: TROPONIN I < 0.012 ng/mL
[2016-08-07] MEDS ORDERED: MAGNESIUM SULFATE/D5W 1 GM/100 ML RTUPB IV ONE ×2 (01:45→06:21)
[2016-08-07] MEDS: NORMAL SALINE 1000 ML 1,000 ML IV PRN ×2 (06:25→16:40)
[2016-08-07 06:57] LABS: ABSOLUTE BASOPHILS # (AUTO) 0.1 10^3/uL (0.0-0.2); ABSOLUTE EOSINOPHILS # (AUTO) 0.5 10^3/uL (0.0-0.6); ABSOLUTE MONOCYTES (AUTO) 1.1 10^3/uL (0.1-1.4); ABSOLUTE NEUT (AUTO) 9.3 10^3/uL (1.7-8.2); BASOPHILS % (AUTO) 0.7 % (0-2); EOSINOPHILS % (AUTO) 3.2 % (0-6); HEMATOCRIT 36.1 % (36.0-47.0); HEMOGLOBIN 12.3 g/dL (12.0-15.5); HGB HCT DIFFERENCE 0.8; LYMPHOCYTES % (AUTO) 26.7 % (13-45); MEAN CORPUSCULAR HEMOGLOBIN 27.8 pg (27.0-33.4); MEAN CORPUSCULAR VOLUME 82 fl (80-97); MONOCYTES % (AUTO) 7.4 % (3-13); RED CELL DISTRIBUTION WIDTH 14.4 % (11.5-14.0)
[2016-08-07 07:15] LABS: ANION GAP 13 (5-19); BLOOD UREA NITROGEN 17 mg/dL (7-20); CALCIUM 9.5 mg/dL (8.4-10.2); CARBON DIOXIDE 20 mmol/L (22-30); CHLORIDE 108 mmol/L (98-107); CREATININE RESULT 1.02 mg/dL (0.52-1.25); GLUCOSE 107 mg/dL (75-110); POTASSIUM 3.5 mmol/L (3.6-5.0); SODIUM 140.6 mmol/L (137-145)
[2016-08-07] MEDS ORDERED: ACETAMINOPHEN 325 MG TABLET PO ONE (12:19)
--- NOTE | 2016-08-07 18:15 | PDOC PROGRESS REPORT ---
Subjective Progress Note for:: 08/07/16 Subjective:: CELIA TRIPLETT is a 76 year old female, from [facility], who presents to the emergency room for evaluation of above complaint. Hospitalized on our service the of the of this month with final diagnoses including sepsis secondary to urinary tract infection, pulmonary fibrosis, sciatica, chronic back pain, chronic opiate use, orthostatic hypotension. Patient requested refills of her narcotics and benzodiazepines upon discharge, but this was declined. History and physical and discharge summary have been reviewed. She presents now with continuation of what she describes as a two-week history of pronounced dizziness, her chronic low back pain and sciatica, decreased output, and foul-smelling diarrhea. She's had nausea but no vomiting. Mild dysuria. Shaking chills. No abdominal pain. Please refer to comments by the evaluating emergency room physician in his initial evaluation of the patient, in particular comments related to her wide- based staggering as he describes it. C. difficile toxin is positive on 08/06/2016. Physical Exam Vital Signs: Temp Pulse Resp BP Pulse Ox 97.9 F 67 18 113/83 97 08/06/16 18:40 08/06/16 18:40 08/07/16 17:00 08/07/16 16:46 08/07/16 17:00 Intake & Output 08/06/16 08/07/16 08/08/16 06:59 06:59 06:59 Output Total 0 Balance 0 General appearance: PRESENT: no acute distress, cooperative, other - obese Head exam: PRESENT: atraumatic, normocephalic Eye exam: PRESENT: conjunctiva pink, EOMI, PERRLA. ABSENT: nystagmus, scleral icterus Ear exam: PRESENT: normal external ear exam Mouth exam: PRESENT: moist, tongue midline Neck exam: ABSENT: carotid bruit, JVD, lymphadenopathy, thyromegaly Respiratory exam: PRESENT: clear to auscultation bird. ABSENT: rales, rhonchi, wheezes Cardiovascular exam: PRESENT: RRR. ABSENT: diastolic murmur, rubs, systolic murmur Pulses: PRESENT: normal dorsalis pedis pul Vascular exam: PRESENT: normal capillary refill GI/Abdominal exam: PRESENT: normal bowel sounds, soft. ABSENT: distended, guarding, mass, organolmegaly, rebound, tenderness Rectal exam: PRESENT: deferred Extremities exam: PRESENT: full ROM. ABSENT: calf tenderness, clubbing, pedal edema Neurological exam: PRESENT: alert, awake, oriented to person, oriented to place , oriented to time, oriented to situation, CN II-XII grossly intact, other - speech is fluent, normal fine motor, no tremor. ABSENT: motor sensory deficit Psychiatric exam: PRESENT: appropriate affect, normal mood. ABSENT: homicidal ideation, suicidal ideation Skin exam: PRESENT: dry, intact, warm. ABSENT: cyanosis, rash Results Laboratory Results: 08/07/16 06:43 08/07/16 06:43 08/07/16 08/07/16 06:43 06:43 WBC 15.0 H RBC 4.40 Hgb 12.3 Hct 36.1 MCV 82 MCH 27.8 MCHC 34.0 RDW 14.4 H Plt Count 215 Seg Neutrophils % 62.0 Lymphocytes % 26.7 Monocytes % 7.4 Eosinophils % 3.2 Basophils % 0.7 Absolute Neutrophils 9.3 H Absolute Lymphocytes 4.0 Absolute Monocytes 1.1 Absolute Eosinophils 0.5 Absolute Basophils 0.1 Sodium 140.6 Potassium 3.5 L Chloride 108 H Carbon Dioxide 20 L Anion Gap 13 BUN 17 Creatinine 1.02 Est GFR ( Amer) > 60 Est GFR (Non-Af Amer) 52 L Glucose 107 Calcium 9.5 08/07/16 08/07/16 00:22 00:22 Creatine Kinase 48 CK-MB (CK-2) 0.76 Troponin I < 0.012 Impressions: Head CT 08/07/16 00:00 IMPRESSION: No acute intracranial hemorrhage or acute territorial infarct. Chronic changes of atrophy and microvascular ischemia. Assessment & Plan - Diagnosis (1) Dizziness Is this a current diagnosis for this admission?: YesPlan: This is the reason she came to the hospital in the first place at the previous hospitalization. This continues to be her chief complaint. CT of the brain is negative for acute disease, positive for microvascular changes. Will pursue with MRI. (2) Headache Qualifiers: Headache type: unspecified Headache chronicity pattern: acute headache Intractability: not intractable Qualified Code(s): R51 - Headache Is this a current diagnosis for this admission?: YesPlan: Headache came on with the dizziness. It has been present on and off for several weeks. (3) Clostridium difficile diarrhea Is this a current diagnosis for this admission?: YesPlan: Oral vancomycin has been started. (4) Heme + stool Is this a current diagnosis for this admission?: YesPlan: Hemoglobin is 12.3 with a normal MCV. We'll monitor. (5) UTI (urinary tract infection) Qualifiers: Urinary tract infection type: site unspecified Is this a current diagnosis for this admission?: YesPlan: The patient is on Rocephin. (6) CKD (chronic kidney disease) stage 3, GFR 30-59 ml/min Is this a current diagnosis for this admission?: YesPlan: Will monitor. (8) Pulmonary fibrosis Is this a current diagnosis for this admission?: Yes (9) Chronic back pain Qualifiers: Back pain location: low back pain Back pain laterality: unspecified Sciatica presence: with sciatica Sciatica laterality: sciatica of left side Qualified Code(s): M54.42 - Lumbago with sciatica, left side; G89.29 - Other chronic pain Is this a current diagnosis for this admission?: Yes (10) Sciatica Qualifiers: Laterality: left Qualified Code(s): M54.32 - Sciatica, left side Is this a current diagnosis for this admission?: Yes (11) Chronic prescription opiate use Is this a current diagnosis for this admission?: Yes
[2016-08-07] MEDS ORDERED: MECLIZINE HCL 12.5 MG TABLET PO PRN (18:17)
[2016-08-07] MEDS ORDERED: CEFTRIAXONE 1 GM/D5W RTU 1 GM/50 ML RTUPB IV SCH (22:00)
[2016-08-07] MEDS: ACETAMINOPHEN 325 MG TABLET PO PRN (23:24)
[2016-08-08] MEDS ORDERED: VANCOMYCIN HCL INJ 500 MG VIAL ONE (00:46)
[2016-08-08] MEDS: VANCOMYCIN HCL INJ 500 MG VIAL PO SCH ×2 (00:52→06:44)
[2016-08-08] MEDS: ACETAMINOPHEN 325 MG TABLET PO PRN (03:56)
[2016-08-08 05:01] LABS: ABSOLUTE BASOPHILS # (AUTO) 0.1 10^3/uL (0.0-0.2); ABSOLUTE EOSINOPHILS # (AUTO) 0.5 10^3/uL (0.0-0.6); ABSOLUTE LYMPHOCYTES (AUTO) 3.6 10^3/uL (0.5-4.7); ABSOLUTE MONOCYTES (AUTO) 0.7 10^3/uL (0.1-1.4); ABSOLUTE NEUT (AUTO) 8.1 10^3/uL (1.7-8.2); BASOPHILS % (AUTO) 0.7 % (0-2); EOSINOPHILS % (AUTO) 3.5 % (0-6); HEMATOCRIT 34.4 % (36.0-47.0); HEMOGLOBIN 11.7 g/dL (12.0-15.5); HGB HCT DIFFERENCE 0.7; MEAN CORPUSCULAR HGB CONC 34.2 g/dL (32.0-36.0); MEAN CORPUSCULAR VOLUME 82 fl (80-97); MONOCYTES % (AUTO) 5.4 % (3-13); RED BLOOD COUNT 4.19 10^6/uL (3.72-5.28); SEGMENTED NEUTROPHILS % (AUTO) 62.4 % (42-78)
[2016-08-08 05:25] LABS: ANION GAP 11 (5-19); BLOOD UREA NITROGEN 13 mg/dL (7-20); CALCIUM 9.3 mg/dL (8.4-10.2); CARBON DIOXIDE 20 mmol/L (22-30); CHLORIDE 112 mmol/L (98-107); CREATININE RESULT 0.76 mg/dL (0.52-1.25); GLUCOSE 101 mg/dL (75-110); POTASSIUM 3.5 mmol/L (3.6-5.0); SODIUM 142.9 mmol/L (137-145)
[2016-08-08] MEDS ORDERED: (PENDING PHARMACY ID) (Trazodone Hcl [Desyrel] 100 MG) PO PRN (09:07)
[2016-08-08] MEDS ORDERED: DIAZEPAM 5 MG TABLET PO PRN (09:07)
[2016-08-08] MEDS ORDERED: ALBUTEROL SULFATE HFA (90 MCG/PUFF) 8 GM MDI (1 MDI/ER DISP) IH PRN (09:07)
[2016-08-08] MEDS ORDERED: ALBUTEROL SULFATE HFA (90 MCG/PUFF) 200 PUFF/8.5 GM MDI IH PRN (10:05)
[2016-08-08] MEDS ORDERED: TRAZODONE HCL 50 MG TABLET PO PRN (10:06)
[2016-08-08] MEDS ORDERED: SERTRALINE HCL 50 MG TABLET PO ONE (11:00)
[2016-08-08] MEDS: OXYCODONE-ACETAMINOPHEN 5-325 MG TABLET PO PRN ×3 (11:05→23:44)
[2016-08-08] MEDS: ASPIRIN 81 MG TABLET, CHEWABLE PO SCH (11:06)
[2016-08-08] MEDS: METOPROLOL SUCCINATE 50 MG TAB.SR.24H PO SCH (11:06)
[2016-08-08] MEDS: LORATADINE 10 MG TABLET PO SCH (11:08)
[2016-08-08] MEDS: APIXABAN 5 MG TABLET PO SCH ×2 (11:08→17:41)
[2016-08-08] MEDS: METRONIDAZOLE 500 MG TABLET PO SCH ×2 (14:22→21:54)
--- NOTE | 2016-08-08 15:20 | Physician Advisory Note ---
Physician Advisor ProgressNote .: [facility] I have reviewed the medical record for this patient. Physician Advisor Statement: Possible documentation opportunities if attending agrees: 1. "atherosclerotic cerebrovascular disease" 2. "dizziness, likely due to " [atherosclerotic cerebrovasc dz + mild dehyd?] 3. "Medical necessity" - please make it explicit the reasons this pt still needing hospital care/monitoring, for each night. - See below - please comment on points below that may be concerning clinically here (as opposed to ones you may consider "red herrings"). - Is she having ongoing large amts diarrhea? Unable to hold down much po? Severely dizzy? Orthostatic results concern you? Issues with her breathing? How is she still different from baseline? Concerned for sepsis, or just a contaminant? ... 4. ? - "acute metabolic acidosis, likely due to ____" [ongoing diarrhea?] As always, if concerned about any unstable VS or abnormal labs, please comment on them & note what doing about them, & please document each day the potential clinical problems you are concerned could occur if pt not kept in hospital for tx at this time. 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 (+) WBC 16.0, Hgb 13.7, bicarb 20, glc 114, Mag 1.5, (+)Cldiff, hemoccult (+), U /A w/lg LE/sm bld, CT= chronic SVWMIchanges. ED gave Rocephin, Flagyl po, vanc po, meclizine. Attending ordered po vanc q6h, IV ROcephin, NS @125, IV Mag, I/Os, tele, falls precautions, PT eval. Status: Pt w/C.diff diarrhea, dizziness, hem(+)stool, UTI w/microscopic hematuria, acute renal insufficiency without jordan LAURA. On 08/07, pt reported on & off BOSS w/her dizziness. still w/leukocytosis of 15.0 , Hgb 12.3, K down to 35., bicarb still low at 20. - MRI was ordered, showed SVWMIchanges. Orthostatics were done but were not (+ ) at 23:00. In PM, pt w/recurrent tachypnea up to 25 at times. - Attending documented concerns about hem(+) stool in this pt w/C.diff , wanting to monitor Hgb with this. - He rec'd continuing Rocephin as tx of UTI. UTI could certainly contribute to dehydration along with the C.diff diarrhea, the dehydration could produce the dizziness. Needing to know UTI adequately tx'd by ur cx results. - Attending continued IVF. - Attending ordered prn meclizine. PT eval was attempted but pt declined, reporting increased fatigue. On 08/08, pt reportedly had at least 1BM on 08/07 & 1 so far on 08/08 per I/O report. 10AM Nsg note reports continued diarrhea. - Orthostatics done at 3AM, with essentially stable BP but did have increased HR from 59 to 70 going from sitting to standing. -WBC still elevated at 13.0, with Hgb worse at 11.7, K 3.5, bicarb still low at 20, Uric acid 9.0. Cr down now from 1.10 to 0.76 so far with rehydration. - 1 of 2 BCs is growing GPC in clusters. Ur cx & stool cx appear to have Tanvi. - Attending has ordered metoprolol, ASA, Eliquis, Zoloft, prn oxycodone/valium/ albuterol/Trazodone. She has d/c'd vanc & started po flagyl. Tx in inpatient hospital setting x at least 2MNs appears to be medically reasonable & necessary to protect pt's health, safety, & medical condition. Approp for Inpt status with explicit attending documentation of reasons. Thanks for your help with documentation accuracy/specificity improvement! France Barksdale MD [facility] Physician Advisor, Fellow of Hospital Medicine
--- NOTE | 2016-08-08 16:33 | PDOC PROGRESS REPORT ---
Subjective Progress Note for:: 08/08/16 Subjective:: Patient is seen on morning rounds. She is presently resting in bed. She denies nausea, or abdominal pain. She states she's continued to have diarrhea although it's improving infrequency and amounts. She was found to have Clostridium difficile diarrhea. She denies any recent antibiotic use. She also complains of dysuria which is improving. She was found to have a urinary tract infection urinalysis. She was started on IV antibiotics with culture pending She states she was vacationing with her daughter and grandchildren in [place]. She was returning home to [place] when she became ill presented to the hospital here. She states today she is overwhelmed feeling better than she has. Physical Exam Vital Signs: Temp Pulse Resp BP Pulse Ox 98.5 F 65 20 144/65 H 95 08/08/16 11:36 08/08/16 14:00 08/08/16 11:36 08/08/16 11:36 08/08/16 11:36 Intake & Output 08/07/16 08/08/16 08/09/16 06:59 06:59 06:59 Intake Total 1762 0 Output Total 500 Balance 1262 0 Weight 88.4 kg General appearance: PRESENT: no acute distress, obese, well-developed, well- nourished Head exam: PRESENT: atraumatic, normocephalic Eye exam: PRESENT: conjunctiva pink, EOMI, PERRLA. ABSENT: scleral icterus Ear exam: PRESENT: normal external ear exam Mouth exam: PRESENT: moist, tongue midline Neck exam: ABSENT: carotid bruit, JVD, lymphadenopathy, thyromegaly Respiratory exam: PRESENT: clear to auscultation bird. ABSENT: rales, rhonchi, wheezes Cardiovascular exam: PRESENT: RRR. ABSENT: diastolic murmur, rubs, systolic murmur Pulses: PRESENT: normal dorsalis pedis pul Vascular exam: PRESENT: normal capillary refill GI/Abdominal exam: PRESENT: hyperactive bowel sounds, soft. ABSENT: distended, guarding, mass, organolmegaly, rebound, tenderness Rectal exam: PRESENT: deferred Extremities exam: PRESENT: full ROM. ABSENT: calf tenderness, clubbing, pedal edema Neurological exam: PRESENT: alert, awake, oriented to person, oriented to place , oriented to time, oriented to situation, CN II-XII grossly intact. ABSENT: motor sensory deficit Psychiatric exam: PRESENT: appropriate affect, normal mood. ABSENT: homicidal ideation, suicidal ideation Skin exam: PRESENT: dry, intact, warm. ABSENT: cyanosis, rash Results Laboratory Results: 08/08/16 04:34 08/08/16 04:34 08/08/16 08/08/16 08/08/16 04:34 04:34 04:34 WBC 13.0 H RBC 4.19 Hgb 11.7 L Hct 34.4 L MCV 82 MCH 28.0 MCHC 34.2 RDW 14.0 Plt Count 207 Seg Neutrophils % 62.4 Lymphocytes % 28.0 Monocytes % 5.4 Eosinophils % 3.5 Basophils % 0.7 Absolute Neutrophils 8.1 Absolute Lymphocytes 3.6 Absolute Monocytes 0.7 Absolute Eosinophils 0.5 Absolute Basophils 0.1 Sodium 142.9 Potassium 3.5 L Chloride 112 H Carbon Dioxide 20 L Anion Gap 11 BUN 13 Creatinine 0.76 Est GFR ( Amer) > 60 Est GFR (Non-Af Amer) > 60 Glucose 101 Uric Acid 9.0 H Calcium 9.3 08/07/16 08/07/16 00:22 00:22 Creatine Kinase 48 CK-MB (CK-2) 0.76 Troponin I < 0.012 Impressions: Head CT 08/07/16 00:00 IMPRESSION: No acute intracranial hemorrhage or acute territorial infarct. Chronic changes of atrophy and microvascular ischemia. Head MRI 08/07/16 00:00 IMPRESSION: ATROPHY AND CHRONIC MICRO-VASCULAR ISCHEMIC CHANGES. OTHERWISE NORMAL MRI OF THE BRAIN WITHOUT INTRAVENOUS GADOLINIUM CONTRAST. Assessment & Plan - Diagnosis (1) Clostridium difficile diarrhea Is this a current diagnosis for this admission?: YesPlan: Patient is improving on current treatment of Flagyl. She has no recent antibiotic usage. She was started on broad-spectrum antibiotics for possible urinary tract infection, however cultures grew only tanvi, their foramina [place] stop. She did receive 1 dose of vancomycin. Hopefully diarrhea resolves and current treatment. (2) Dizziness Is this a current diagnosis for this admission?: YesPlan: Patient symptoms are compatible with vestibular neuritis. They are improved. Meclizine has helped. MRI of the head showed small vessel disease otherwise no added abnormalities (3) Metabolic acidosis Is this a current diagnosis for this admission?: YesPlan: Secondary to diarrhea and fluid volume loss. We'll continue IV hydration and Flagyl (4) Hypomagnesemia Is this a current diagnosis for this admission?: YesPlan: Replacement replete as needed. Secondary to diarrheal losses. (5) UTI (urinary tract infection) Qualifiers: Urinary tract infection type: site unspecified Is this a current diagnosis for this admission?: YesPlan: Urine culture grew Tanvi. Ceftriaxone was stopped. Started on oral diflucan (6) Chronic prescription opiate use Is this a current diagnosis for this admission?: YesPlan: Patient has chronic sciatica right leg involvement. She has been on long-term opiate pain medication for this. We'll continue her home Percocet dose. (7) Orthostatic hypotension Is this a current diagnosis for this admission?: YesPlan: Secondary to dehydration from diarrhea. Improved with IV hydration. - Time Time Spent with patient: 25-34 minutes Medications reviewed and adjusted accordingly: Yes Anticipated discharge: Home Within: within 48 hours - Inpatient Certification Based on my medical assessment, after consideration of the patient's comorbidities, presenting symptoms, or acuity I expect that the services needed warrant INPATIENT care.: Yes I certify that my determination is in accordance with my understanding of Medicare's requirements for reasonable and necessary INPATIENT services [42 CFR 412.3e].: Yes Medical Necessity: Significant Comorbidiites Make Outpatient Treatment Too Risky , Need Close Monitoring Due to Risk of Patient Decompensation
[2016-08-08] MEDS: FLUCONAZOLE 100 MG TABLET PO SCH (17:41)
[2016-08-08] MEDS: FLUTICASONE NASAL SPRAY 50 MCG/SPRY 120 SPRAY/16 GM NASL SCH (21:53)
[2016-08-09] MEDS: METRONIDAZOLE 500 MG TABLET PO SCH ×3 (06:56→21:41)
[2016-08-09 08:31] LABS: ANION GAP 12 (5-19); BLOOD UREA NITROGEN 13 mg/dL (7-20); CALCIUM 9.5 mg/dL (8.4-10.2); CARBON DIOXIDE 23 mmol/L (22-30); CHLORIDE 111 mmol/L (98-107); CREATININE RESULT 0.91 mg/dL (0.52-1.25); GLUCOSE 90 mg/dL (75-110); POTASSIUM 3.6 mmol/L (3.6-5.0); SODIUM 146.3 mmol/L (137-145)
[2016-08-09] MEDS ORDERED: COLCHICINE 0.6 MG TABLET PO ONE (10:00)
[2016-08-09] MEDS: SERTRALINE HCL 50 MG TABLET PO SCH (10:13)
[2016-08-09] MEDS: PREDNISONE 20 MG TABLET PO SCH ×2 (10:13→18:01)
[2016-08-09] MEDS: LORATADINE 10 MG TABLET PO SCH (10:14)
[2016-08-09] MEDS: METOPROLOL SUCCINATE 50 MG TAB.SR.24H PO SCH (10:14)
[2016-08-09] MEDS: ASPIRIN 81 MG TABLET, CHEWABLE PO SCH (10:14)
[2016-08-09] MEDS: APIXABAN 5 MG TABLET PO SCH ×2 (10:15→18:02)
[2016-08-09] MEDS: OXYCODONE-ACETAMINOPHEN 5-325 MG TABLET PO PRN ×2 (10:24→19:29)
[2016-08-09] MEDS: FLUTICASONE NASAL SPRAY 50 MCG/SPRY 120 SPRAY/16 GM NASL SCH ×2 (10:25→21:43)
--- NOTE | 2016-08-09 16:22 | PDOC PROGRESS REPORT ---
Subjective Progress Note for:: 08/09/16 Subjective:: Patient is seen on morning rounds. She is presently resting in bed. She denies nausea, or abdominal pain. She states she's continued to have diarrhea although it's improving infrequency and amounts. She was found to have Clostridium difficile diarrhea. She denies any recent antibiotic use. She also complains of dysuria which is improving. She was found to sanam in her urine She was recently admitted here and treated for a uti with IV rocephin and oral cipro. She is complaining of gout symptoms in her right ankle. There is no erythema or swelling. Mild elevation of uric acid Physical Exam Vital Signs: Temp Pulse Resp BP Pulse Ox 97.8 F 58 L 16 102/72 91 L 08/09/16 15:34 08/09/16 15:34 08/09/16 15:34 08/09/16 15:34 08/09/16 15:34 Intake & Output 08/08/16 08/09/16 08/10/16 06:59 06:59 06:59 Intake Total 1762 797 Output Total 500 Balance 1262 797 Weight 88.4 kg 88.9 kg General appearance: PRESENT: no acute distress, well-developed, well-nourished Head exam: PRESENT: atraumatic, normocephalic Eye exam: PRESENT: conjunctiva pink, EOMI, PERRLA. ABSENT: scleral icterus Ear exam: PRESENT: normal external ear exam Mouth exam: PRESENT: moist, tongue midline Neck exam: ABSENT: carotid bruit, JVD, lymphadenopathy, thyromegaly Respiratory exam: PRESENT: clear to auscultation bird. ABSENT: rales, rhonchi, wheezes Cardiovascular exam: PRESENT: RRR. ABSENT: diastolic murmur, rubs, systolic murmur Pulses: PRESENT: normal dorsalis pedis pul Vascular exam: PRESENT: normal capillary refill GI/Abdominal exam: PRESENT: normal bowel sounds, soft. ABSENT: distended, guarding, mass, organolmegaly, rebound, tenderness Rectal exam: PRESENT: deferred Extremities exam: PRESENT: full ROM. ABSENT: calf tenderness, clubbing, pedal edema Neurological exam: PRESENT: alert, awake, oriented to person, oriented to place , oriented to time, oriented to situation, CN II-XII grossly intact. ABSENT: motor sensory deficit Psychiatric exam: PRESENT: appropriate affect, normal mood. ABSENT: homicidal ideation, suicidal ideation Skin exam: PRESENT: dry, intact, warm. ABSENT: cyanosis, rash Results Laboratory Results: 08/08/16 04:34 08/09/16 07:52 08/09/16 07:52 Sodium 146.3 H Potassium 3.6 Chloride 111 H Carbon Dioxide 23 Anion Gap 12 BUN 13 Creatinine 0.91 Est GFR ( Amer) > 60 Est GFR (Non-Af Amer) > 60 Glucose 90 Calcium 9.5 08/07/16 08/07/16 00:22 00:22 Creatine Kinase 48 CK-MB (CK-2) 0.76 Troponin I < 0.012 Impressions: Head CT 08/07/16 00:00 IMPRESSION: No acute intracranial hemorrhage or acute territorial infarct. Chronic changes of atrophy and microvascular ischemia. Head MRI 08/07/16 00:00 IMPRESSION: ATROPHY AND CHRONIC MICRO-VASCULAR ISCHEMIC CHANGES. OTHERWISE NORMAL MRI OF THE BRAIN WITHOUT INTRAVENOUS GADOLINIUM CONTRAST. Assessment & Plan - Diagnosis (1) Clostridium difficile diarrhea Is this a current diagnosis for this admission?: YesPlan: Patient is improving on current treatment of Flagyl. She was treated here on for uti with IV rocephin and oral Cipro (2) Dizziness Is this a current diagnosis for this admission?: YesPlan: Resolved (3) Metabolic acidosis Is this a current diagnosis for this admission?: YesPlan: REsolved (4) Hypomagnesemia Is this a current diagnosis for this admission?: YesPlan: Resolved (5) Chronic prescription opiate use Is this a current diagnosis for this admission?: YesPlan: Patient has chronic sciatica right leg involvement. She has been on long-term opiate pain medication for this. We'll continue her home Percocet dose. (6) Orthostatic hypotension Is this a current diagnosis for this admission?: Yes (7) Gouty arthritis Is this a current diagnosis for this admission?: YesPlan: Will give colchrys and prednisone - Time Time Spent with patient: 25-34 minutes Critical Time spent with patient: 15-24 minutes Medications reviewed and adjusted accordingly: Yes Anticipated discharge: Home Within: within 24 hours
[2016-08-09] MEDS: FLUCONAZOLE 100 MG TABLET PO SCH (18:01)
[2016-08-10] MEDS: METRONIDAZOLE 500 MG TABLET PO SCH (05:04)
[2016-08-10 07:45] VITALS: BP 113/52
[2016-08-10] MEDS: SERTRALINE HCL 50 MG TABLET PO SCH (09:07)
[2016-08-10] MEDS: PREDNISONE 20 MG TABLET PO SCH (09:07)
[2016-08-10] MEDS: OXYCODONE-ACETAMINOPHEN 5-325 MG TABLET PO PRN (09:07)
[2016-08-10] MEDS: METOPROLOL SUCCINATE 50 MG TAB.SR.24H PO SCH (09:08)
[2016-08-10] MEDS: LORATADINE 10 MG TABLET PO SCH (09:08)
[2016-08-10] MEDS: ASPIRIN 81 MG TABLET, CHEWABLE PO SCH (09:08)
[2016-08-10] MEDS: APIXABAN 5 MG TABLET PO SCH (09:09)
[2016-08-10] MEDS: FLUTICASONE NASAL SPRAY 50 MCG/SPRY 120 SPRAY/16 GM NASL SCH (09:37)
--- NOTE | 2016-08-10 16:26 | PDOC DISCHARGE SUMMARY ---
General - Admit/Disc Date/PCP Admission Date/Primary Care Provider: 08/06/16 23:48 Discharge Date: 08/10/16 - Discharge Diagnosis (1) Clostridium difficile diarrhea Is this a current diagnosis for this admission?: YesSummary: Resolved (2) Dizziness Is this a current diagnosis for this admission?: YesSummary: Resolved (3) Metabolic acidosis Is this a current diagnosis for this admission?: YesSummary: Resolved (4) Hypomagnesemia Is this a current diagnosis for this admission?: YesSummary: Resolved (5) Chronic prescription opiate use Is this a current diagnosis for this admission?: YesSummary: Continue current prescriptions. (6) Orthostatic hypotension Is this a current diagnosis for this admission?: YesSummary: Resolved (7) Gouty arthritis Is this a current diagnosis for this admission?: YesSummary: Resolved - Additional Information Resuscitation Status: Full Code Discharge Diet: Regular Discharge Activity: Activity As Tolerated, Balance Activity w/Rest Home Medications: Albuterol Sulfate [Ventolin HFA MDI 18 GM] 1 puff IH Q6HP PRN 08/07/16 Apixaban [Eliquis 5 mg Tablet] 5 mg PO BID 08/07/16 Aspirin [Aspirin 81 mg Chewable Tablet] 81 mg PO DAILY 08/07/16 Diazepam [Valium 5 mg Tablet] 5 mg PO TIDP PRN 08/07/16 Docusate Sodium [Colace 100 mg Capsule] 100 mg PO DAILYP PRN 08/07/16 Fluticasone Propionate [Flonase Nasal [place] 50 Mcg/[place] 16 gm] 1 spray NASL Q12 08/07/16 Furosemide [Lasix] 20 mg PO BID 08/07/16 Loratadine [Claritin 10 mg Tablet] 10 mg PO DAILY 08/07/16 Metoprolol Succinate [Toprol Xl 50 mg Tab.sr] 50 mg PO DAILY 08/07/16 Sertraline HCl [Zoloft] 100 mg PO DAILY 08/07/16 Trazodone HCl [Desyrel] 100 mg PO HSP PRN 08/07/16 Acetaminophen [Tylenol 325 mg Tablet] 650 mg PO Q4HP PRN tablet 08/10/16 Metronidazole [Flagyl 500 mg Tablet] 500 mg PO Q8 #18 tablet 08/10/16 Oxycodone HCl/Acetaminophen [Percocet 5-325 mg Tablet] 1 - 2 tab PO Q4HP PRN # 30 tablet 08/10/16 Prednisone [Deltasone 20 mg Tablet] 20 mg PO BID #6 tablet 08/10/16 History of Present Illness Patient complains of: Diarrhea and dizziness History of Present Illness: PCP [facility] Patient complains of: Dizziness, and diarrhea. History of Present Illness: CELIA TRIPLETT is a 76 year old female, from [facility], who presents to the emergency room for evaluation of above complaint. Hospitalized on our service the of the of this month with final diagnoses including sepsis secondary to urinary tract infection, pulmonary fibrosis, sciatica, chronic back pain, chronic opiate use, orthostatic hypotension. Patient requested refills of her narcotics and benzodiazepines upon discharge, but this was declined. History and physical and discharge summary have been reviewed. She presents now with continuation of what she describes as a two-week history of times pronounced dizziness, her chronic low back pain and sciatica, decreased output, and foul-smelling diarrhea. She's had nausea but no vomiting. Mild dysuria. Shaking chills. No abdominal pain. Please refer to comments by the evaluating emergency room physician in his initial evaluation of the patient, in particular comments related to her wide- based staggering as he describes it. History of C. difficile infection. Patient has been discussed with emergency room physician who evaluated the patient. . Hospital Course Hospital Course: Patient was admitted to the hospitalist service to [facility]. She was found to have positive stool culture first C. difficile. She was started on Flagyl by mouth. She was given IV fluids for orthostatic hypotension. She complained of headache and dizziness MRI of the head was obtained which revealed small vessel disease otherwise no abnormalities. The following day she continued to complain of headache. She also complained of right ankle pain. She has history of gouty arthritis. She progressed the following day. Today she feels ready for discharge. She'll be discharged home with family, with follow-up with her primary care provider in [place] once she returns. Physical Exam Vital Signs: Temp Pulse Resp BP Pulse Ox 97.5 F 55 L 18 113/52 L 96 08/10/16 08:46 08/10/16 08:46 08/10/16 08:46 08/10/16 08:46 08/10/16 08:46 Intake & Output 08/09/16 08/10/16 08/11/16 06:59 06:59 06:59 Intake Total 797 2342 Balance 797 2342 Weight 88.9 kg 91.8 kg General appearance: PRESENT: no acute distress, well-developed, well-nourished Head exam: PRESENT: atraumatic, normocephalic Eye exam: PRESENT: conjunctiva pink, EOMI, PERRLA. ABSENT: scleral icterus Ear exam: PRESENT: normal external ear exam Mouth exam: PRESENT: moist, tongue midline Neck exam: ABSENT: carotid bruit, JVD, lymphadenopathy, thyromegaly Respiratory exam: PRESENT: clear to auscultation bird. ABSENT: rales, rhonchi, wheezes Cardiovascular exam: PRESENT: RRR. ABSENT: diastolic murmur, rubs, systolic murmur Pulses: PRESENT: normal dorsalis pedis pul Vascular exam: PRESENT: normal capillary refill GI/Abdominal exam: PRESENT: normal bowel sounds, soft. ABSENT: distended, guarding, mass, organolmegaly, rebound, tenderness Rectal exam: PRESENT: deferred Extremities exam: PRESENT: calf tenderness Neurological exam: PRESENT: alert, awake, oriented to person, oriented to place , oriented to time, oriented to situation, CN II-XII grossly intact. ABSENT: motor sensory deficit Psychiatric exam: PRESENT: appropriate affect, normal mood. ABSENT: homicidal ideation, suicidal ideation Skin exam: PRESENT: dry, intact, warm. ABSENT: cyanosis, rash Results Laboratory Results: 08/08/16 04:34 08/09/16 07:52 08/07/16 06:43 Blood Blood Culture - Final Staphylococcus Epidermidis 08/07/16 08/07/16 00:22 00:22 Creatine Kinase 48 CK-MB (CK-2) 0.76 Troponin I < 0.012 Impressions: Head CT 08/07/16 00:00 IMPRESSION: No acute intracranial hemorrhage or acute territorial infarct. Chronic changes of atrophy and microvascular ischemia. Head MRI 08/07/16 00:00 IMPRESSION: ATROPHY AND CHRONIC MICRO-VASCULAR ISCHEMIC CHANGES. OTHERWISE NORMAL MRI OF THE BRAIN WITHOUT INTRAVENOUS GADOLINIUM CONTRAST. Qualifiers PATEINT BEING DISCHARGED WITH ANY OF THE FOLLOWING DIAGNOSIS?: No Plan Discharge Plan: Discharge home with family Time Spent: Less than 30 Minutes
--- NOTE | 2016-08-10 19:04 | Progress Note ---
Provider Note Provider Note: Patient family return to the hospital stating they lost patient's medication prescriptions. Per request, I called [facility] and page to [facility] on [facility]. I declined at this time to replace narcotic prescription.
== END 2016-08-10 09:59 | disposition home or self-care (01) | DRG 372 ==
LOC: ER 14:25 → UNDOADMIN 19:57 → EH 19:57 → 3N 08-07 20:20
PROVIDERS: ADMIT Family Medicine; ATTEND Family Medicine
DX: A04.7 Enterocolitis due to Clostridium difficile (principal); E87.2 Acidosis; B37.49 Other urogenital candidiasis; I50.9 Heart failure, unspecified; I25.10 Atherosclerotic heart disease of native coronary artery without angina pectoris; E83.42 Hypomagnesemia; I95.1 Orthostatic hypotension; N18.3 Chronic kidney disease, stage 3 (moderate); J84.10 Pulmonary fibrosis, unspecified; E11.9 Type 2 diabetes mellitus without complications; M1A.9XX0 Chronic gout, unspecified, without tophus (tophi); G89.29 Other chronic pain; M54.42 Lumbago with sciatica, left side; F32.9 Major depressive disorder, single episode, unspecified; F41.1 Generalized anxiety disorder; Z79.82 Long term (current) use of aspirin; Z79.899 Other long term (current) drug therapy; Z95.1 Presence of aortocoronary bypass graft; Z88.8 Allergy status to other drugs, medicaments and biological substances
CPT/HCPCS: 36415; 70450; 70551; 80048; 80053; 81001; 82272; 82550; 82553; 82962; 83735; 84443; 84484; 84550; 85025; 87040; 87045; 87077; 87086; 87186; 87205; 87493; 89055; 93005; 93010; 99285; G8978-GP; G8979-GP; G8980-GP; J0696; J3370; J3475; J3490; J7030; J7512

== ENCOUNTER 2016-08-19 09:43 | Emergency (ER) | payer MEDICARE ==
[2016-08-19] MEDS ORDERED: PROCHLORPERAZINE EDISYLATE INJ 10 MG/2 ML VIAL IV ONE (11:33)
[2016-08-19] MEDS ORDERED: DIPHENHYDRAMINE HCL 50 MG/ML VIAL IV ONE (11:33)
[2016-08-19] MEDS ORDERED: NORMAL SALINE 1000 ML 1,000 ML IV PRN (11:33)
[2016-08-19 11:43] LABS: ABSOLUTE BASOPHILS # (AUTO) 0.1 10^3/uL (0.0-0.2); ABSOLUTE LYMPHOCYTES (AUTO) 2.1 10^3/uL (0.5-4.7); ABSOLUTE NEUT (AUTO) 12.3 10^3/uL (1.7-8.2); BASOPHILS % (AUTO) 0.9 % (0-2); EOSINOPHILS % (AUTO) 0.3 % (0-6); HEMATOCRIT 39.8 % (36.0-47.0); HGB HCT DIFFERENCE -0.8; LYMPHOCYTES % (AUTO) 13.5 % (13-45); MEAN CORPUSCULAR HEMOGLOBIN 27.4 pg (27.0-33.4); MEAN CORPUSCULAR HGB CONC 32.7 g/dL (32.0-36.0); MEAN CORPUSCULAR VOLUME 84 fl (80-97); MONOCYTES % (AUTO) 6.4 % (3-13); RED BLOOD COUNT 4.75 10^6/uL (3.72-5.28); RED CELL DISTRIBUTION WIDTH 15.4 % (11.5-14.0); SEGMENTED NEUTROPHILS % (AUTO) 78.9 % (42-78); WHITE BLOOD COUNT 15.5 10^3/uL (4.0-10.5)
--- NOTE | 2016-08-19 11:47 | ER Document Report ---
ED General - General Chief Complaint: Diarrhea Stated Complaint: POSSIBLE SYNCOPAL EPISODE Mode of Arrival: Ambulatory Information source: Patient, Relative Notes: 68-year-old female presents with complaints of diarrhea of 3 week duration. Patient has a history of C. difficile, was initially treated 3 weeks ago for UTI. Patient notes feeling weak , light headed. family notes she has been intermittently passing out over the past 3 weeks probably due ot her bp. Pt was then diagnosed with cdiff 2 weeks aog, admitted, treated with flagyl. TRAVEL OUTSIDE OF THE [place] IN LAST 30 DAYS: No - HPI Onset: Other Onset/Duration: Persistent Quality of pain: Achy Severity: Mild Pain Level: 1 Associated symptoms: Diarrhea, Weakness Exacerbated by: Denies Relieved by: Denies Similar symptoms previously: Yes Recently seen / treated by doctor: Yes - Related Data Allergies/Adverse Reactions: ibuprofen [From Motrin] Allergy (Verified 08/06/16 14:43) ketorolac [From Toradol] Allergy (Verified 08/06/16 14:43) Past Medical History - Social History Smoking Status: Unknown if Ever Smoked Cigarette use (# per day): No Chew tobacco use (# tins/day): No Smoking Education Provided: No Family History: Hypertension - Past Medical History Cardiac Medical History: Reports: Hx Atrial Fibrillation, Hx Congestive Heart Failure, Hx Coronary Artery Disease, Hx Hypercholesterolemia - No medication for same, due to her age per patient. Denies: Hx DVT, Hx Pulmonary Embolism Pulmonary Medical History: Denies: Hx Asthma, Hx COPD, Hx Sleep Apnea Neurological Medical History: Denies: Hx Seizures Endocrine Medical History: Reports: Hx Diabetes Mellitus Type 2 - Diet- controlled. Denies: Hx Hyperthyroidism, Hx Hypothyroidism Renal/ Medical History: Denies: Hx Peritoneal Dialysis GI Medical History: Denies: Hx Cirrhosis, Hx Gastroesophageal Reflux Disease, Hx Hepatitis Musculoskeltal Medical History: Reports Hx Gout Psychiatric Medical History: Reports: Hx Depression Infectious Medical History: Reports: Hx C-Diff. Denies: Hx Hepatitis, Hx MRSA Past Surgical History: Reports: Hx Cardiac Surgery - CABG, Hx Coronary Artery Bypass Graft - Immunizations Hx Pneumococcal Vaccination: 02/12/16 Review of Systems - Review of Systems Notes: REVIEW OF SYSTEMS: CONSTITUTIONAL : Denies fever, chills, or sweats. Denies recent illness. EENT: Denies eye, ear, throat, or mouth pain or symptoms. Denies nasal or sinus congestion or discharge. Denies throat, tongue, or mouth swelling or difficulty swallowing. CARDIOVASCULAR: Denies chest pain. Denies palpitations or racing or irregular heart beat. Denies ankle edema. RESPIRATORY: Denies cough, cold, or chest congestion. Denies shortness of breath, difficulty breathing, or wheezing. GASTROINTESTINAL: Admits to diarrhea GENITOURINARY: Denies difficulty urinating, painful urination, burning, frequency, blood in urine, or discharge. FEMALE GENITOURINARY: Denies vaginal bleeding, heavy or abnormal periods, irregular periods. Denies vaginal discharge or odor. MUSCULOSKELETAL: Denies back or neck pain or stiffness. Denies joint pain or swelling. SKIN: Denies rash, lesions or sores. HEMATOLOGIC : Denies easy bruising or bleeding. LYMPHATIC: Denies swollen, enlarged glands. NEUROLOGICAL: Admits weakness PSYCHIATRIC: Denies anxiety or stress. Denies depression, suicidal ideation, or homicidal ideation. ALL OTHER SYSTEMS REVIEWED AND NEGATIVE. Dictation was performed using [employer] voice recognition software PHYSICAL EXAMINATION: GENERAL: Well-appearing, well-nourished and in no acute distress. HEAD: Atraumatic, normocephalic. EYES: Pupils equal round and reactive to light, extraocular movements intact, conjunctiva are normal. ENT: Nares patent, oropharynx clear without exudates. Moist mucous membranes. NECK: Normal range of motion, supple without lymphadenopathy LUNGS: Breath sounds clear to auscultation bilaterally and equal. No wheezes rales or rhonchi. HEART: Regular rate and rhythm without murmurs ABDOMEN: Soft, nontender, nondistended abdomen. No guarding, no rebound. No masses appreciated. Female : deferred Musculoskeletal: Normal range of motion, no pitting or edema. No cyanosis. NEUROLOGICAL: Cranial nerves grossly intact. Normal speech, normal gait. Normal sensory, motor exams PSYCH: Normal mood, normal affect. SKIN: Warm, Dry, normal turgor, no rashes or lesions noted. Physical Exam - Vital signs Vitals: Temp Pulse Resp BP Pulse Ox 98.5 F 60 16 119/50 L 94 08/19/16 09:48 08/19/16 09:48 08/19/16 09:48 08/19/16 09:48 08/19/16 09:48 Course - Re-evaluation Re-evalutation: 08/19/16 11:51 Lab work is pending as well as a CT of the abdomen. Otherwise patient's blood pressure is improved with initial IV fluid bolus by EMS 08/19/16 13:03 C. difficile was negative patient is noted to have a history diverticulosis, CT pending 08/19/16 14:30 CT noted diverticulosis without diverticulitis. Family is been made aware that the patient does not meet any admission criteria at this time, I do not believe there is any life-threatening issues at this time. Patient was given 2 L normal saline for hydration After performing a Medical Screening Examination, I estimate there is LOW risk for ACUTE APPENDICITIS, BOWEL OBSTRUCTION, ACUTE CHOLECYSTITIS, PERFORATED DIVERTICULITIS, INCARCERATED HERNIA, PANCREATITIS, PELVIC INFLAMMATORY DISEASE, PERFORATED ULCER, ECTOPIC , or TU[place]-OVARIAN ABSCESS, thus I consider the discharge disposition reasonable. Also, there is no evidence or peritonitis , sepsis, or toxicity. The patient and I have discussed the diagnosis and risks , and we agree with discharging home with close follow-up with the understanding that symptoms and presentations can change. We also discussed returning to the Emergency Department immediately if new or worsening symptoms occur. We have discussed the symptoms which are most concerning (e.g., bloody stool, fever, changing or worsening pain, vomiting) that necessitate immediate return. - Vital Signs Vital signs: Temp Pulse Resp BP Pulse Ox 98.5 F 60 22 H 115/45 L 94 08/19/16 09:48 08/19/16 09:48 08/19/16 13:23 08/19/16 12:01 08/19/16 13:23 - Laboratory Result Diagrams: 08/19/16 11:30 08/19/16 11:30 Laboratory results interpreted by me: 08/19/16 08/19/16 11:30 11:30 WBC 15.5 H RDW 15.4 H Seg Neutrophils % 78.9 H Absolute Neutrophils 12.3 H Est GFR (Non-Af Amer) 55 L Glucose 113 H - Diagnostic Test Radiology reviewed: Image reviewed, Reports reviewed Discharge - Discharge Clinical Impression: Sigmoid diverticulosis, History of Clostridium difficile infection Diarrhea Qualifiers: Diarrhea type: unspecified type Qualified Code(s): R19.7 - Diarrhea, unspecified Syncope Qualifiers: Syncope type: unspecified Qualified Code(s): R55 - Syncope and collapse Condition: Stable Disposition: HOME, SELF-CARE Instructions: Diarrhea, Nonspecific ([facility]) Referrals: SADE HERNANDEZ MD [ACTIVE STAFF] - Follow up tomorrow
[2016-08-19 12:01] LABS: ALANINE AMINOTRANSFERASE 26 U/L (9-52); ALBUMIN 3.9 g/dL (3.5-5.0); ALKALINE PHOSPHATASE 79 U/L (38-126); ANION GAP 11 (5-19); ASPARTATE AMINO TRANSFERASE 17 U/L (14-36); BILIRUBIN,DIRECT 0.3 mg/dL (0.0-0.4); BILIRUBIN,TOTAL 0.5 mg/dL (0.2-1.3); BLOOD UREA NITROGEN 10 mg/dL (7-20); CALCIUM 9.1 mg/dL (8.4-10.2); CARBON DIOXIDE 26 mmol/L (22-30); CHLORIDE 106 mmol/L (98-107); CREATINE KINASE 34 U/L (30-135); CREATININE RESULT 0.98 mg/dL (0.52-1.25); GLUCOSE 113 mg/dL (75-110); POTASSIUM 4.1 mmol/L (3.6-5.0); TOTAL PROTEIN 6.7 g/dL (6.3-8.2)
[2016-08-19 12:13] LABS: CREATINE KINASE MB 0.22 ng/mL (<4.55)
[2016-08-19 12:14] LABS: TROPONIN I < 0.012 ng/mL
[2016-08-19 16:17] VITALS: BP 142/71
--- NOTE | 2016-08-19 20:48 | EKG REPORT ---
SEVERITY:- ABNORMAL ECG - SINUS RHYTHM RIGHT BUNDLE BRANCH BLOCK : Confirmed by: Delfino Henderson 19-Aug-2016 20:46:40
== END 2016-08-19 16:17 | disposition home or self-care (01) ==
LOC: ER 09:43
DX: R19.7 Diarrhea, unspecified (principal); K57.30 Diverticulosis of large intestine without perforation or abscess without bleeding; R55 Syncope and collapse; R53.1 Weakness; I25.10 Atherosclerotic heart disease of native coronary artery without angina pectoris; E11.9 Type 2 diabetes mellitus without complications; Z86.19 Personal history of other infectious and parasitic diseases; Z88.6 Allergy status to analgesic agent; Z88.8 Allergy status to other drugs, medicaments and biological substances; Z95.1 Presence of aortocoronary bypass graft
CPT/HCPCS: 93005; 99284; 96361; 96374; 96375; 36415; 82553; 82550; 85025; 80053; 84484; 87493 ×2; 74177; 93010; J1200; J0780; J7030